=== PATIENT | male | born 1965 | race African-American/Black ===

== ENCOUNTER 2018-08-20 14:58 | Inpatient (IN) | payer OTHER ==
[~2018-08-20] VITALS: Ht 175.3 cm; Wt 78.4 kg
[2018-08-20 15:12] LABS: BASOPHILS % (AUTO) 0.8 % (0.0-5.0); EOSINOPHILS % (AUTO) 0.2 % (0.0-8.0); LYMPHOCYTES % (AUTO) 15.1 % (21.0-51.0); MEAN CORPUSCULAR HEMOGLOBIN 21.8 pg (27.0-33.0); MEAN CORPUSCULAR HGB CONC 31.2 g/dL (32.0-36.0); MEAN CORPUSCULAR VOLUME 69.8 fL (79-99); MONOCYTES % (AUTO) 7.4 % (3.0-13.0); NEUTROPHILS % (AUTO) 76.5 % (40.0-77.0); PLATELET COUNT (AUTO) 251 K/uL (130-400); RED BLOOD CELL COUNT(AUTO) 5.59 MIL/uL (4.50-6.20); RED CELL DISTRIBUTION WIDTH 14.2 % (11.0-15.5); WHITE BLOOD COUNT (AUTO) 12.1 K/uL (4.8-10.8)
[2018-08-20 15:24] LABS: INR 0.96 (0.85-1.15); PARTIAL THROMBOPLASTIN TIME 24.8 SEC (26.3-35.5); PROTHROMBIN TIME 10.1 SEC (9.6-11.6)
[2018-08-20 15:29] LABS: BILIRUBIN,TOTAL 0.5 mg/dL (0.2-1.0); CREATININE 1.9 mg/dL (0.5-1.5); POTASSIUM 4.1 mmol/L (3.5-5.1); TOTAL PROTEIN, SERUM 7.3 g/dL (6.0-8.3)
[2018-08-20] MEDS ORDERED: SODIUM CHLORIDE 0.9% 1000ML 1,000 ML IV ONE (15:37)
[2018-08-20] MEDS ORDERED: INSULIN HUMULIN R 100 UNIT/ML 3ML ONE (15:38)
[2018-08-20 16:21] LABS: APPEARANCE,URINE Clear (CLEAR); BILIRUBIN,URINE Negative (NEGATIVE); COLOR,URINE Yellow (YELLOW); GLUCOSE, URINE (UA) >=1000 mg/dL (NEGATIVE); KETONES,URINE 40 mg/dL (NEGATIVE); LEUKOCYTE ESTERASE ,URINE Negative (NEGATIVE); NITRATE,URINE Negative (NEGATIVE); OCCULT BLOOD,URINE Moderate (NEGATIVE); PROTEIN,URINE POS 2+ (NEGATIVE); UROBILINOGEN,URINE 0.2 mg/dL (0.2-1.0)
[2018-08-20 16:28] LABS: AMPHET/METH SCREEN,URINE NEGATIVE (NEGATIVE); BARBITURATE SCREEN, URINE NEGATIVE (NEGATIVE); BENZODIAZEPINES SCREEN,URINE NEGATIVE (NEGATIVE); CANNABINOID SCREEN,URINE NEGATIVE (NEGATIVE); COCAINE SCREEN,URINE POSITIVE (NEGATIVE); OPIATE SCREEN,URINE NEGATIVE (NEGATIVE); PHENCYCLIDINE SCREEN,URINE NEGATIVE (NEGATIVE)
[2018-08-20] MEDS ORDERED: ONDANSETRON HCL MDV 20ML 2 MG/ML VIAL IVP PRN (16:45)
[2018-08-20] MEDS ORDERED: MORPHINE SULFATE 4 MG/1ML SYG IV PRN (16:45)
[2018-08-20] MEDS ORDERED: GLUCAGON 1MG KIT 1 MG ML IM PRN (16:45)
[2018-08-20] MEDS ORDERED: PANTOPRAZOLE SODIUM 80 MG in SODIUM CHLORIDE 0.9% 100 ML IV SCH (16:45)
[2018-08-20] MEDS ORDERED: DEXTROSE 50%-WATER 50 ML DISP.SYRIN IV PRN (16:45)
[2018-08-20 16:49] LABS: BACTERIA,URINE None Seen /HPF (None Seen)
[2018-08-20 16:50] LABS: SQUAMOUS EPITHELIAL CELL,UR 0-2 /HPF (0-2); WBC,URINE 0-1 /HPF (0-1)
[2018-08-20] MEDS: SODIUM CHLORIDE 0.9% 1000ML 1,000 ML IV SCH (18:05)
[2018-08-20] MEDS: HYDRALAZINE HCL 20 MG/ML VIAL IV PRN ×2 (18:05→23:42)
[2018-08-20 18:09] VITALS: BP 188/96
[2018-08-20 18:33] VITALS: BP 156/75
[2018-08-20 19:30] VITALS: BP 149/83
--- NOTE | 2018-08-20 19:30 | NUR ---
bedside report received from DIRK Galeas. pt presents AAOx3. pt denies pain at this time. protonix and NS running. pt reports last cocaine use 08/17/18. pt reports last hospitalization 03/2018 and EGD done by Dr. Gonzales. Pt reports being diagnosed with ulcers and prescribed medication fill x 1 month. pt reports not following up with Dr. Gonzales and not refilling medications d/t insufficient funds. pt reports running out of lisinopril " a couple of months ago" and reports "rarely" checking blood glucoses. A1C at 13.4.
[2018-08-20] MEDS: INSULIN HUMULIN R 100 UNIT/ML 3ML SQ SCH (21:31)
[2018-08-20 21:52] LABS: TROPONIN I 0.09 ng/mL (0.00-0.06)
[2018-08-20 23:19] VITALS: BP 169/82
[2018-08-21 01:52] LABS: TROPONIN I 0.15 ng/mL (0.00-0.06)
[2018-08-21] MEDS: SODIUM CHLORIDE 0.9% 1000ML 1,000 ML IV SCH ×2 (02:35→12:35)
[2018-08-21 03:26] VITALS: BP 139/67
[2018-08-21 04:43] LABS: HEMATOCRIT 33.8 % (42-54); MEAN CORPUSCULAR HEMOGLOBIN 21.7 pg (27.0-33.0); MEAN CORPUSCULAR HGB CONC 32.1 g/dL (32.0-36.0); MEAN CORPUSCULAR VOLUME 67.5 fL (79-99); PLATELET COUNT (AUTO) 212 K/uL (130-400); RED BLOOD CELL COUNT(AUTO) 5.01 MIL/uL (4.50-6.20); RED CELL DISTRIBUTION WIDTH 14.2 % (11.0-15.5); WHITE BLOOD COUNT (AUTO) 10.1 K/uL (4.8-10.8)
--- NOTE | 2018-08-21 05:09 | NUR ---
Mega Reese NP notified of increased troponin from 0.09 to 0.15. SECOND TIME WORKER ordered EKG. Reported pts last cocaine use on . will report results to SECOND TIME WORKER.
[2018-08-21 05:10] LABS: ALBUMIN 2.4 g/dL (3.5-5.0); BILIRUBIN,TOTAL 0.6 mg/dL (0.2-1.0); CREATININE 1.5 mg/dL (0.5-1.5); POTASSIUM 3.2 mmol/L (3.5-5.1); TOTAL PROTEIN, SERUM 5.8 g/dL (6.0-8.3)
[2018-08-21] MEDS: INSULIN HUMULIN R 100 UNIT/ML 3ML SQ SCH ×2 (06:25→11:48)
[2018-08-21 07:52] VITALS: BP 147/81
[2018-08-21 10:22] LABS: TROPONIN I 0.1 ng/mL (0.00-0.06)
[2018-08-21 11:41] VITALS: BP 163/77
--- NOTE | 2018-08-21 14:29 | NUR ---
DC PLAN VISITED WITH PATIENT. IN BATHROOM WILL LOOP BACK. PER FACE SHEET LIVES ALONE. Addendum: 08/21/18 at 1430 by GWEN ANDERSON RN CM Amended: Links added.
[2018-08-21 16:35] VITALS: BP 144/81
[2018-08-21] MEDS ORDERED: PANT40TA PO (16:38)
--- NOTE | 2018-08-21 17:20 | NUR ---
Patient discharged at 1720. Both his IV's were dc'd and tele pack was removed. Patient was given education on signs and symptoms of bleeding and was informed that he has an appointment with Dr. Gonzales tomorrow at 1030am. Patient's had no questions and was taken via private vehicle by significant other.
== END 2018-08-21 17:40 | disposition home or self-care (01) | DRG 392 ==
LOC: EDH 14:58 → OBSVTOIN 14:59 → 2AH 14:59
PROVIDERS: ADMIT Hospitalist; ATTEND Hospitalist
DX: K52.9 Noninfective gastroenteritis and colitis, unspecified (principal); I24.8 Other forms of acute ischemic heart disease; K57.90 Diverticulosis of intestine, part unspecified, without perforation or abscess without bleeding; D53.9 Nutritional anemia, unspecified; E11.9 Type 2 diabetes mellitus without complications; F10.20 Alcohol dependence, uncomplicated; F14.90 Cocaine use, unspecified, uncomplicated; F17.210 Nicotine dependence, cigarettes, uncomplicated; I10 Essential (primary) hypertension; N28.1 Cyst of kidney, acquired; Z79.899 Other long term (current) drug therapy; Z87.11 Personal history of peptic ulcer disease; Z91.19 Patient's noncompliance with other medical treatment and regimen; Z83.3 Family history of diabetes mellitus
CPT/HCPCS: 36415; 74176; 80053; 80305; 81001; 82150; 82270; 82550; 82948; 83690; 83874; 84484; 85025; 85027; 85610; 85730; 86677; 87804; 93005; C9113; G0378; J0360; J1815; J7030

== ENCOUNTER 2019-03-11 20:47 | Inpatient (IN) | payer SELFPAY ==
[~2019-03-11] VITALS: Ht 175.3 cm; Wt 79.4 kg
[~2019-03-11 20:47] MED LIST: PANT40TA PO
[2019-03-11] MEDS ORDERED: SODIUM CHLORIDE 0.9% 1000ML 1,000 ML IV ONE ×2 (21:14→23:34)
[2019-03-11 21:17] LABS: APPEARANCE,URINE Clear (CLEAR); BILIRUBIN,URINE Negative (NEGATIVE); COLOR,URINE Yellow (YELLOW); GLUCOSE, URINE (UA) >=1000 mg/dL (NEGATIVE); KETONES,URINE 40 mg/dL (NEGATIVE); LEUKOCYTE ESTERASE ,URINE Negative (NEGATIVE); NITRATE,URINE Negative (NEGATIVE); OCCULT BLOOD,URINE Trace (NEGATIVE); PROTEIN,URINE 300 mg/dL (NEGATIVE); UROBILINOGEN,URINE 0.2 mg/dL (0.2-1.0)
[2019-03-11] MEDS ORDERED: CLONIDINE HCL 0.1 MG TABLET ONE (21:30)
[2019-03-11] MEDS ORDERED: ONDANSETRON HCL 4 MG/2 ML VIAL ONE (21:31)
[2019-03-11 21:33] LABS: BASOPHILS % (AUTO) 0.4 % (0.0-5.0); EOSINOPHILS % (AUTO) 0.1 % (0.0-8.0); HEMATOCRIT 41.9 % (42-54); LYMPHOCYTES % (AUTO) 12.9 % (21.0-51.0); MEAN CORPUSCULAR HEMOGLOBIN 21.6 pg (27.0-33.0); MEAN CORPUSCULAR VOLUME 69.9 fL (79-99); NEUTROPHILS % (AUTO) 78.6 % (40.0-77.0); PLATELET COUNT (AUTO) 258 K/uL (130-400); RED CELL DISTRIBUTION WIDTH 15.2 % (11.0-15.5)
[2019-03-11 21:48] LABS: INR 0.95 (0.85-1.15); PARTIAL THROMBOPLASTIN TIME 24.5 SEC (26.3-35.5)
[2019-03-11 21:54] LABS: ALBUMIN 3.3 g/dL (3.5-5.0); BILIRUBIN,DIRECT 0.1 mg/dL (0.0-0.3); BILIRUBIN,TOTAL 0.8 mg/dL (0.2-1.0); CREATININE 2.5 mg/dL (0.5-1.5); POTASSIUM 4.7 mmol/L (3.5-5.1)
[2019-03-11 22:05] LABS: ABG BASE EXCESS -2.1 mmol/L (-2.0-3.0); ABG HCO3 22.9 mmol/L (21.0-28.0); ABG OXYGEN SATURATION 96.4 % (95.0-99.0); ABG PCO2 40 mmHg (35-48)
[2019-03-11] MEDS: SODIUM CHLORIDE 0.9% 1000ML 1,000 ML IV SCH (23:08)
[2019-03-11] MEDS ORDERED: HYDRALAZINE HCL 20 MG/ML VIAL IV PRN (23:15)
[2019-03-11] MEDS ORDERED: ACETAMINOPHEN 325 MG TAB PO PRN ×2 (23:15)
[2019-03-11] MEDS ORDERED: INSULIN HUMULIN R 100 UNIT/ML 3ML ONE (23:33)
[2019-03-11 23:36] LABS: AMPHET/METH SCREEN,URINE NEGATIVE (NEGATIVE); BARBITURATE SCREEN, URINE NEGATIVE (NEGATIVE); BENZODIAZEPINES SCREEN,URINE NEGATIVE (NEGATIVE); CANNABINOID SCREEN,URINE NEGATIVE (NEGATIVE); COCAINE SCREEN,URINE POSITIVE (NEGATIVE); OPIATE SCREEN,URINE NEGATIVE (NEGATIVE); PHENCYCLIDINE SCREEN,URINE NEGATIVE (NEGATIVE)
[2019-03-12] VITALS (7 sets, daily range): BP systolic 128–178; BP diastolic 71–86
--- NOTE | 2019-03-12 00:35 | NUR ---
REFUSED TO SIGN ADMISSION PAPERS PATIENT DOES NOT WANT TO SIGN PAPERS RIGHT NOW, HE REPORTS HE WANTS TO SLEEP. WILL ENDORSE TO ONCOMING NURSE THE PAPERS WERE NOT SIGNED.
--- NOTE | 2019-03-12 01:32 | NUR ---
PAGED ROLLER SKATE ASSEMBLER PHYSICIAN PATIENT REPORTS FEELING "EXTREMELY NAUSEOUS". NO PRN MEDS FOR NAUSEA ORDERED AT THIS TIME.
[2019-03-12 01:45] LABS: CREATINE KINASE, TOTAL 74 U/L (21-232); MYOGLOBIN 78 ng/mL (10-92); TROPONIN I < 0.04 ng/mL (0.00-0.06)
[2019-03-12] MEDS ORDERED: PROMETHAZINE HCL 25 MG/ML 1ML AMPULE IM PRN (03:00)
[2019-03-12] MEDS: LORAZEPAM 1 MG TABLET PO SCH ×3 (05:27→21:22)
[2019-03-12] MEDS: NITROGLYCERIN 1GM/1 INCH PACKET TD SCH ×3 (05:28→21:23)
[2019-03-12 05:56] LABS: TROPONIN I 0.06 ng/mL (0.00-0.06)
[2019-03-12] MEDS ORDERED: INSULIN HUMULIN R 100 UNIT/ML 3ML ONE (06:03)
--- NOTE | 2019-03-12 06:14 | NUR ---
ELEVATED BLOOD GLUCOSE BLOOD SUGAR 460. ADMINISTERED 16 UNITS OF INSULIN -SEE OCT. PAGED ELECTRONIC DATA INTERCHANGE SPECIALIST PHYSICIAN. REINFORCED SAFETY PRECAUTIONS. BED LOCKED IN LOWEST POSITION, CALL LIGHT WITHIN REACH.
[2019-03-12] MEDS: SODIUM CHLORIDE 0.9% 1000ML 1,000 ML IV SCH ×3 (07:08→22:50)
[2019-03-12] MEDS: INSULIN HUMULIN R 100 UNIT/ML 3ML SQ SCH ×4 (07:30→20:20)
[2019-03-12 08:36] LABS: HEMOGLOBIN A1C 13.4 % (4.0-6.0)
[2019-03-12] MEDS: AMLODIPINE BESYLATE 5 MG TAB PO SCH (08:57)
[2019-03-12] MEDS: FAMOTIDINE/PF 20 MG/2 ML VIAL IV SCH (08:58)
[2019-03-12] MEDS: ENOXAPARIN SODIUM 30 MG/0.3 ML SQ SCH ×2 (08:58→21:22)
[2019-03-12 09:30] LABS: TROPONIN I 0.04 ng/mL (0.00-0.06)
[2019-03-12 09:38] LABS: BASOPHILS % (AUTO) 0.4 % (0.0-5.0); EOSINOPHILS % (AUTO) 0.1 % (0.0-8.0); HEMATOCRIT 35.9 % (42-54); LYMPHOCYTES % (AUTO) 9.8 % (21.0-51.0); MEAN CORPUSCULAR HEMOGLOBIN 22.6 pg (27.0-33.0); MEAN CORPUSCULAR HGB CONC 32.2 g/dL (32.0-36.0); MEAN CORPUSCULAR VOLUME 70.1 fL (79-99); MONOCYTES % (AUTO) 6.1 % (3.0-13.0); NEUTROPHILS % (AUTO) 83.6 % (40.0-77.0); NUCLEATED RED BLOOD CELLS 0.1 % (0.0-0.19); PLATELET COUNT (AUTO) 378 K/uL (130-400); RED BLOOD CELL COUNT(AUTO) 5.11 MIL/uL (4.50-6.20); RED CELL DISTRIBUTION WIDTH 15.4 % (11.0-15.5); WHITE BLOOD COUNT (AUTO) 14.7 K/uL (4.8-10.8)
[2019-03-12 09:46] LABS: ALBUMIN 2.8 g/dL (3.5-5.0); BILIRUBIN,TOTAL 0.4 mg/dL (0.2-1.0); CREATININE 2.4 mg/dL (0.5-1.5); POTASSIUM 4.2 mmol/L (3.5-5.1)
--- NOTE | 2019-03-12 15:30 | NUR ---
INITIAL Met w pt alone, pt indp ADL's employed, works outside, no dme; Pt lives with sister and her family; not listed on face sheet; asked about 'Matilde' on face sheet liseted as spouse- states just a friend but wants her listed as his spouse; cocaine positive; denied habiual use, states once every two weeks, no excess. declined info re rehab. DCP is home, [facility] to follow Addendum: 03/12/19 at 1740 by JACQUELYN NUÑEZ RN CM Amended: Links added.
[2019-03-12] MEDS ORDERED: INSULIN GLARGINE 100 UNITS/ML 10 ML VIAL SQ SCH (21:00)
[2019-03-13 04:36] LABS: HEMATOCRIT 33.7 % (42-54); MEAN CORPUSCULAR HEMOGLOBIN 22.1 pg (27.0-33.0); MEAN CORPUSCULAR HGB CONC 31.9 g/dL (32.0-36.0); MEAN CORPUSCULAR VOLUME 69.3 fL (79-99); PLATELET COUNT (AUTO) 193 K/uL (130-400); RED BLOOD CELL COUNT(AUTO) 4.86 MIL/uL (4.50-6.20); RED CELL DISTRIBUTION WIDTH 15.1 % (11.0-15.5); WHITE BLOOD COUNT (AUTO) 9.3 K/uL (4.8-10.8)
[2019-03-13 04:45] VITALS: BP 134/63
[2019-03-13 04:53] LABS: LYMPHOCYTES % (MANUAL) 30 % (22-44); MAN.DIFF COMMENT-IMPRESSION MANUAL DIFFERENTIAL; MONOCYTES % (MANUAL) 3 % (2-9); PLATELET MORPHOLOGY COMMENT ADEQUATE; SEGMENTED NEUTROPHILS % 67 % (40-70)
[2019-03-13 04:56] LABS: CREATININE 1.7 mg/dL (0.5-1.5); MAGNESIUM 2.3 mg/dL (1.80-2.40); PHOSPHORUS 2.4 mg/dL (2.5-4.9); POTASSIUM 3.4 mmol/L (3.5-5.1); URIC ACID 8.3 mg/dL (2.6-7.2)
[2019-03-13] MEDS: LORAZEPAM 1 MG TABLET PO SCH ×3 (06:09→20:26)
[2019-03-13] MEDS: NITROGLYCERIN 1GM/1 INCH PACKET TD SCH ×3 (06:09→20:26)
[2019-03-13] MEDS: INSULIN HUMULIN R 100 UNIT/ML 3ML SQ SCH ×4 (06:10→20:24)
[2019-03-13 07:56] VITALS: BP 171/87
[2019-03-13] MEDS: SODIUM CHLORIDE 0.9% 1000ML 1,000 ML IV SCH (08:31)
[2019-03-13] MEDS: FAMOTIDINE/PF 20 MG/2 ML VIAL IV SCH (08:32)
[2019-03-13] MEDS: FOLIC ACID/VITAMIN B COMP W-C 1 MG CAP/TAB PO SCH (08:32)
[2019-03-13] MEDS: AMLODIPINE BESYLATE 5 MG TAB PO SCH (08:32)
[2019-03-13] MEDS: ENOXAPARIN SODIUM 30 MG/0.3 ML SQ SCH ×2 (08:33→19:50)
[2019-03-13 10:35] VITALS: BP 151/80
[2019-03-13 15:37] VITALS: BP 164/82
[2019-03-13] MEDS: HYDROCHLOROTHIAZIDE 25 MG TABLET PO SCH (18:25)
[2019-03-13] MEDS ORDERED: POTASSIUM CHLORIDE 20 MEQ ERTAB PO SCH (19:03)
[2019-03-13 21:04] VITALS: BP 134/61
[2019-03-13] MEDS ORDERED: NEUTRA-PHOS PACKET 1 EACH PO SCH (21:15)
[2019-03-13] MEDS ORDERED: HYDR25TA PO (22:07)
[2019-03-13] MEDS ORDERED: ALLO100T PO (22:07)
[2019-03-13] MEDS ORDERED: GLIP5TAB11 PO (22:07)
[2019-03-13] MEDS ORDERED: METF-445 PO (22:07)
[2019-03-13] MEDS ORDERED: AMLO10TA7 PO (22:07)
[2019-03-13 23:30] VITALS: BP 122/76
[2019-03-14 04:58] VITALS: BP 121/71
[2019-03-14 05:20] LABS: BASOPHILS % (AUTO) 0.9 % (0.0-5.0); EOSINOPHILS % (AUTO) 2.1 % (0.0-8.0); HEMATOCRIT 33.4 % (42-54); LYMPHOCYTES % (AUTO) 35.6 % (21.0-51.0); MEAN CORPUSCULAR HGB CONC 31.8 g/dL (32.0-36.0); MEAN CORPUSCULAR VOLUME 69.3 fL (79-99); MONOCYTES % (AUTO) 8.6 % (3.0-13.0); NEUTROPHILS % (AUTO) 52.8 % (40.0-77.0); PLATELET COUNT (AUTO) 182 K/uL (130-400); RED BLOOD CELL COUNT(AUTO) 4.82 MIL/uL (4.50-6.20); RED CELL DISTRIBUTION WIDTH 14.7 % (11.0-15.5); WHITE BLOOD COUNT (AUTO) 6.8 K/uL (4.8-10.8)
[2019-03-14] MEDS: INSULIN HUMULIN R 100 UNIT/ML 3ML SQ SCH (05:32)
[2019-03-14 05:39] LABS: CREATININE 1.4 mg/dL (0.5-1.5); PHOSPHORUS 3.9 mg/dL (2.5-4.9); POTASSIUM 3.5 mmol/L (3.5-5.1)
[2019-03-14] MEDS: LORAZEPAM 1 MG TABLET PO SCH (06:03)
[2019-03-14] MEDS: NITROGLYCERIN 1GM/1 INCH PACKET TD SCH (06:05)
[2019-03-14] MEDS ORDERED: GLIPIZIDE 5 MG TABLET PO SCH (07:30)
--- NOTE | 2019-03-14 07:35 | NUR ---
Diet Education RD provided Diabetes and Nutrition Diet Education. RD reviewed reference materials and handouts with Pt. Pt with multiple questions. RD answered all questions. Pt verbalized understanding. RD encouraged Pt to notify as additional questions or concerns arise. RD to follow up. Noted elevated BG levels and altered renal labs. RD to continue to monitor. Addendum: 03/14/19 at 0738 by ADDISON MUÑOZ RD RD Amended: Links added.
[2019-03-14] MEDS ORDERED: METFORMIN HCL 500 MG TABLET PO SCH (08:00)
[2019-03-14] MEDS ORDERED: AMLODIPINE BESYLATE 2.5 MG TAB PO SCH (09:00)
[2019-03-14] MEDS ORDERED: ALLOPURINOL 100 MG TABLET PO SCH (09:00)
--- NOTE | 2019-03-14 09:37 | NUR ---
received report from loren escobedo .patient awake and alert. denies any pain or discomfort . will cont to monitor
[2019-03-14] MEDS: HYDROCHLOROTHIAZIDE 25 MG TABLET PO SCH (09:53)
[2019-03-14] MEDS: FAMOTIDINE/PF 20 MG/2 ML VIAL IV SCH (09:58)
[2019-03-14] MEDS: AMLODIPINE BESYLATE 5 MG TAB PO SCH (09:58)
[2019-03-14] MEDS: FOLIC ACID/VITAMIN B COMP W-C 1 MG CAP/TAB PO SCH (09:58)
[2019-03-14] MEDS: ENOXAPARIN SODIUM 30 MG/0.3 ML SQ SCH (09:59)
== END 2019-03-14 11:30 | disposition home or self-care (01) | DRG 641 ==
LOC: EDH 20:47 → EDHIP 20:48 → 3CH 03-12 00:50
PROVIDERS: ADMIT Hospitalist; ATTEND Hospitalist
DX: E86.0 Dehydration (principal); N17.9 Acute kidney failure, unspecified; E87.6 Hypokalemia; I16.0 Hypertensive urgency; E11.21 Type 2 diabetes mellitus with diabetic nephropathy; E11.22 Type 2 diabetes mellitus with diabetic chronic kidney disease; E78.5 Hyperlipidemia, unspecified; E86.1 Hypovolemia; F12.90 Cannabis use, unspecified, uncomplicated; F14.10 Cocaine abuse, uncomplicated; E79.0 Hyperuricemia without signs of inflammatory arthritis and tophaceous disease; I12.9 Hypertensive chronic kidney disease with stage 1 through stage 4 chronic kidney disease, or unspecified chronic kidney disease; N18.9 Chronic kidney disease, unspecified; T67.5XXA Heat exhaustion, unspecified, initial encounter; Y93.89 Activity, other specified; Y92.89 Other specified places as the place of occurrence of the external cause; Y99.8 Other external cause status; Z79.84 Long term (current) use of oral hypoglycemic drugs; Z79.899 Other long term (current) drug therapy; Z91.19 Patient's noncompliance with other medical treatment and regimen; Z83.3 Family history of diabetes mellitus
CPT/HCPCS: 36415; 36600; 71046; 76770; 80048; 80053; 80076; 80305; 81003; 82550; 82803; 82947; 82948; 83036; 83690; 83735; 83874; 84100; 84484; 84550; 85025; 85610; 85730; 93005; G0378; J0360; J1650; J1815; J2405; J2550; J3490; J7030

== ENCOUNTER 2019-12-06 03:42 | Inpatient (IN) | payer BC, OTHER ==
[2019-12-05 12:45] VITALS: BP 158/71
[2019-12-06] VITALS (9 sets, daily range): BP systolic 151–163; BP diastolic 69–78
[~2019-12-06 03:42] MED LIST changes: +ALLO100T PO; +AMLO-258 PO; +GLIP5TAB11 PO; +HYDR25TA PO; +METF-445 PO; -PANT40TA PO
[2019-12-06] MEDS ORDERED: METOCLOPRAMIDE 10 MG/2 ML VIAL ONE (03:59)
[2019-12-06] MEDS ORDERED: ONDANSETRON HCL 4 MG/2 ML VIAL ONE (03:59)
[2019-12-06] MEDS ORDERED: FAMOTIDINE/PF 20 MG/2 ML VIAL IV ONE (04:00)
[2019-12-06] MEDS ORDERED: NICARDIPINE HCL 25 MG/10 ML ML IV ONE ×2 (04:17→04:20)
[2019-12-06 04:29] LABS: BASOPHILS % (AUTO) 0.4 % (0.0-5.0); EOSINOPHILS % (AUTO) 0.1 % (0.0-8.0); HEMATOCRIT 41.5 % (42-54); LYMPHOCYTES % (AUTO) 14.3 % (21.0-51.0); MEAN CORPUSCULAR HEMOGLOBIN 21.1 pg (27.0-33.0); MEAN CORPUSCULAR HGB CONC 31.6 g/dL (32.0-36.0); MEAN CORPUSCULAR VOLUME 66.7 fL (79-99); MONOCYTES % (AUTO) 4.9 % (3.0-13.0); NEUTROPHILS % (AUTO) 79.9 % (40.0-77.0); PLATELET COUNT (AUTO) 317 K/uL (130-400); RED BLOOD CELL COUNT(AUTO) 6.22 MIL/uL (4.50-6.20); RED CELL DISTRIBUTION WIDTH 15.9 % (11.0-15.5); WHITE BLOOD COUNT (AUTO) 14.5 K/uL (4.8-10.8)
[2019-12-06 04:32] LABS: CARBON DIOXIDE 19 mmol/L (21-32); CHLORIDE 96 mmol/L (101-111); CREATININE 2.5 mg/dL (0.5-1.5); GLOMERULAR FILTR. RATE CALC 35 mL/min (>60); GLUCOSE,RANDOM 353 mg/dL (70-105); POTASSIUM 3.7 mmol/L (3.5-5.1); SODIUM SERUM 135 mmol/L (136-145); UREA NITROGEN, BLOOD 26 mg/dL (7-18)
[2019-12-06 04:33] LABS: INR 0.95 (0.85-1.15); PROTHROMBIN TIME 10.3 SEC (9.6-11.6)
[2019-12-06 04:39] LABS: OCCULT BLOOD,GASTRIC FLUID POSITIVE (NEGATIVE)
[2019-12-06 04:40] LABS: ALANINE AMINOTRANSFERASE 21 U/L (12-78); ALBUMIN 3.2 g/dL (3.5-5.0); ASPARTATE AMINOTRANSFERASE 17 U/L (10-37); BILIRUBIN,TOTAL 0.7 mg/dL (0.2-1.0); LIPASE 107 U/L (114-286); TOTAL PROTEIN, SERUM 7.4 g/dL (6.0-8.3)
[2019-12-06] MEDS ORDERED: DiphenhydrAMINE HCL 50 MG/ML VIAL ONE (04:43)
[2019-12-06 04:46] LABS: ALCOHOL, BLOOD < 3 mg/dL (0-10)
[2019-12-06 05:18] LABS: APPEARANCE,URINE Clear (CLEAR); BILIRUBIN,URINE Negative (NEGATIVE); COLOR,URINE Yellow (YELLOW); GLUCOSE, URINE (UA) >=1000 mg/dL (NEGATIVE); KETONES,URINE 40 mg/dL (NEGATIVE); LEUKOCYTE ESTERASE ,URINE Negative (NEGATIVE); NITRATE,URINE Negative (NEGATIVE); OCCULT BLOOD,URINE Moderate (NEGATIVE); PH,URINE 5.5 (5.0-8.0); PROTEIN,URINE >=1000 mg/dL (NEGATIVE)
[2019-12-06 05:26] LABS: AMPHET/METH SCREEN,URINE NEGATIVE (NEGATIVE); BARBITURATE SCREEN, URINE NEGATIVE (NEGATIVE); BENZODIAZEPINES SCREEN,URINE NEGATIVE (NEGATIVE); CANNABINOID SCREEN,URINE POSITIVE (NEGATIVE); COCAINE SCREEN,URINE POSITIVE (NEGATIVE); OPIATE SCREEN,URINE NEGATIVE (NEGATIVE); PHENCYCLIDINE SCREEN,URINE NEGATIVE (NEGATIVE)
[2019-12-06 05:36] LABS: BACTERIA,URINE None Seen /HPF (None Seen); RBC,URINE 0-1 /HPF (0-1); SQUAMOUS EPITHELIAL CELL,UR Rare /HPF (0-2); WBC,URINE 0-1 /HPF (0-1); YEAST,URINE BUDDING None Seen /HPF (None Seen)
[2019-12-06] MEDS ORDERED: SODIUM CHLORIDE 0.9% 1000ML 1,000 ML IV SCH (05:59)
[2019-12-06] MEDS ORDERED: ONDANSETRON HCL 4 MG/2 ML VIAL IV PRN (06:00)
[2019-12-06] MEDS ORDERED: MORPHINE SULFATE 2 MG/ML 1ML SYG IV PRN (06:00)
[2019-12-06] MEDS ORDERED: LACTULOSE 20 GM/30 ML UDCUP PO PRN (06:00)
[2019-12-06] MEDS ORDERED: ACETAMINOPHEN 325 MG TAB PO PRN ×2 (06:00)
[2019-12-06] MEDS ORDERED: HYDRALAZINE HCL 20 MG/ML VIAL IV PRN (06:00)
[2019-12-06] MEDS ORDERED: ZOSYN 3.375GM+NS 50ML 50 ML IV SCH (06:30)
[2019-12-06 06:55] LABS: CHOLESTEROL 254 mg/dL (<200); HDL CHOLESTEROL 81 mg/dL (29-71); LDL DIRECT 148 mg/dL (0-99); TRIGLYCERIDES 126 mg/dL (30-200)
[2019-12-06 06:59] LABS: HEMOGLOBIN A1C 9.2 % (4.0-6.0)
[2019-12-06] MEDS ORDERED: ZOSYN 3.375GM+NS 50ML 50 ML IV ONE (07:26)
[2019-12-06] MEDS ORDERED: METOPROLOL TARTRATE 25 MG TAB PO SCH (09:00)
[2019-12-06] MEDS ORDERED: PANTOPRAZOLE SODIUM 80 MG in SODIUM CHLORIDE 0.9% 100 ML IV SCH (09:00)
[2019-12-06] MEDS ORDERED: METOPROLOL TARTRATE 25 MG TAB ONE (10:25)
[2019-12-06 10:53] LABS: HEMATOCRIT 35.5 % (42-54)
[2019-12-06] MEDS ORDERED: SODIUM CHLORIDE 0.9% 100 ML IV ONE (11:36)
[2019-12-06] MEDS ORDERED: PROPOFOL 10 MG/ML 20ML VIAL IV ONE (11:58)
[2019-12-06] MEDS ORDERED: GLYCOPYRROLATE 1 MG/5 ML SYRINGE ONE ×2 (11:59→12:00)
[2019-12-06] MEDS ORDERED: NEOSTIGMINE 5MG/5ML SYR IV ONE (11:59)
[2019-12-06] MEDS ORDERED: ROCURONIUM 10MG/1ML SYR 10 MG/ML ML ONE (12:01)
--- NOTE | 2019-12-06 12:55 | NUR ---
chart reviewed, acbrenna uploaded. Addendum: 12/06/19 at 1255 by JACQUELYN NUÑEZ RN CM Amended: Links added.
[2019-12-06] MEDS ORDERED: MIDAZOLAM HCL 1 MG/ML 2ML VIAL ONE (13:38)
[2019-12-06] MEDS ORDERED: FENTANYL CITRATE PF 50 MCG/1 ML 2ML VIAL ONE (13:39)
[2019-12-06] MEDS ORDERED: PANT40TA PO (15:15)
[2019-12-06] MEDS ORDERED: ATORVASTATIN CALCIUM 20 MG TABLET PO SCH (21:00)
[2020-05-14] MEDS ORDERED: LORA0.5T83 PO (01:24)
[2020-05-14] MEDS ORDERED: CHLO25TA23 PO (01:24)
[2020-05-14] MEDS ORDERED: ATOR40TA69 PO (01:24)
[2020-05-14] MEDS ORDERED: HYDR-4153 PO (01:24)
[2020-05-14] MEDS ORDERED: ISOS60TA4 PO (01:24)
[2020-05-17] MEDS ORDERED: METF-446 PO (17:19)
[2020-05-17] MEDS ORDERED: GLIP10TA19 PO (17:20)
[2020-05-17] MEDS ORDERED: INSU100I35 SQ ×2 (17:22→17:24)
== END 2019-12-06 17:26 | disposition home or self-care (01) | DRG 682 ==
LOC: EDH 03:42 → EDHIP 05:59 → OBSVTOIN 05:59
PROVIDERS: ADMIT Internal Medicine; ATTEND Internal Medicine
PROC: 0DB58ZX Excision of Esophagus, Via Natural or Artificial Opening Endoscopic, Diagnostic (ICD-10-PCS; principal; 2019-12-06)
PROC: 0DB68ZX Excision of Stomach, Via Natural or Artificial Opening Endoscopic, Diagnostic (ICD-10-PCS; 2019-12-06)
DX: N17.9 Acute kidney failure, unspecified (principal); K29.51 Unspecified chronic gastritis with bleeding; I24.8 Other forms of acute ischemic heart disease; E87.2 Acidosis; I16.0 Hypertensive urgency; E11.22 Type 2 diabetes mellitus with diabetic chronic kidney disease; F12.90 Cannabis use, unspecified, uncomplicated; F14.90 Cocaine use, unspecified, uncomplicated; F17.200 Nicotine dependence, unspecified, uncomplicated; I12.9 Hypertensive chronic kidney disease with stage 1 through stage 4 chronic kidney disease, or unspecified chronic kidney disease; N18.9 Chronic kidney disease, unspecified; K21.0 Gastro-esophageal reflux disease with esophagitis; K29.50 Unspecified chronic gastritis without bleeding; Z83.3 Family history of diabetes mellitus; Z82.49 Family history of ischemic heart disease and other diseases of the circulatory system
CPT/HCPCS: 36415; 43239; 71045; 74176; 80053; 80061; 80305; 81001; 82271; 82948; 83036; 83605; 83690; 84484; 85014; 85018; 85025; 85610; 85730; 86850; 86900; 86901; 87040; 93005; 99291; G0378; G0480; J1200; J2250; J2405; J2543; J2704; J2710; J2765; J3010; J3490

== ENCOUNTER 2020-11-23 03:05 | Inpatient (IN) | payer OTHER ==
[~2020-11-23] VITALS: Ht 177.8 cm; Wt 97.1 kg
[~2020-11-23 03:05] MED LIST changes: -ALLO100T PO; +ATOR40TA69 PO; +CHLO25TA23 PO; +GLIP10TA19 PO; -GLIP5TAB11 PO; +HYDR-4153 PO; -HYDR25TA PO; +INSU100I35 SQ; +ISOS60TA77 PO; +LORA0.5T83 PO; -METF-445 PO; +METF-446 PO; +PANT40TA PO
[2020-11-23 03:20] LABS: BASOPHILS % (AUTO) 0.6 % (0.0-5.0); EOSINOPHILS % (AUTO) 3.3 % (0.0-8.0); HEMATOCRIT 31.8 % (42-54); LYMPHOCYTES % (AUTO) 13.9 % (21.0-51.0); MEAN CORPUSCULAR HEMOGLOBIN 19.9 pg (27.0-33.0); MEAN CORPUSCULAR HGB CONC 32.1 g/dL (32.0-36.0); MEAN CORPUSCULAR VOLUME 62.1 fL (79-99); MONOCYTES % (AUTO) 11.6 % (3.0-13.0); NEUTROPHILS % (AUTO) 70.4 % (40.0-77.0); PLATELET COUNT (AUTO) 364 K/uL (130-400); RED BLOOD CELL COUNT(AUTO) 5.12 MIL/uL (4.50-6.20); RED CELL DISTRIBUTION WIDTH 17.2 % (11.0-15.5); WHITE BLOOD COUNT (AUTO) 8.9 K/uL (4.8-10.8)
[2020-11-23] MEDS ORDERED: FUROSEMIDE 10 MG/ML 4ML VIAL ONE ×2 (03:31→07:43)
[2020-11-23 03:35] LABS: ALBUMIN 2.2 g/dL (3.5-5.0); BILIRUBIN,TOTAL 0.6 mg/dL (0.2-1.0); CREATININE 2.1 mg/dL (0.5-1.5); POTASSIUM 4.6 mmol/L (3.5-5.1); TOTAL PROTEIN, SERUM 6.9 g/dL (6.0-8.3)
[2020-11-23 03:52] LABS: INR 1.05 (0.85-1.15); PROTHROMBIN TIME 11.4 SEC (9.6-11.6)
[2020-11-23 03:54] LABS: PARTIAL THROMBOPLASTIN TIME 26.4 SEC (26.3-35.5)
[2020-11-23 04:09] LABS: APPEARANCE,URINE Clear (CLEAR); BILIRUBIN,URINE Negative (NEGATIVE); COLOR,URINE Yellow (YELLOW); GLUCOSE, URINE (UA) 250 mg/dL (NEGATIVE); KETONES,URINE Negative (NEGATIVE); LEUKOCYTE ESTERASE ,URINE Negative (NEGATIVE); NITRATE,URINE Negative (NEGATIVE); OCCULT BLOOD,URINE Moderate (NEGATIVE); PROTEIN,URINE 300 mg/dL (NEGATIVE)
[2020-11-23 04:28] LABS: BACTERIA,URINE None Seen /HPF (None Seen); SQUAMOUS EPITHELIAL CELL,UR Few /HPF (0-2); WBC,URINE 0-1 /HPF (0-1)
[2020-11-23 04:41] LABS: AMPHET/METH SCREEN,URINE NEGATIVE (NEGATIVE); BARBITURATE SCREEN, URINE NEGATIVE (NEGATIVE); BENZODIAZEPINES SCREEN,URINE NEGATIVE (NEGATIVE); CANNABINOID SCREEN,URINE NEGATIVE (NEGATIVE); COCAINE SCREEN,URINE POSITIVE (NEGATIVE); OPIATE SCREEN,URINE NEGATIVE (NEGATIVE); PHENCYCLIDINE SCREEN,URINE NEGATIVE (NEGATIVE)
[2020-11-23] MEDS ORDERED: HYDROCODONE/ACETAMINOPHEN 5/325 MG TAB ONE (06:14)
[2020-11-23] MEDS ORDERED: ONDANSETRON HCL 4 MG/2 ML VIAL IVP PRN (09:00)
[2020-11-23] MEDS: ENOXAPARIN SODIUM 40 MG/0.4 ML SYRINGE SQ SCH (09:00)
[2020-11-23] MEDS ORDERED: FUROSEMIDE 10 MG/ML 2ML VIAL IV SCH (09:00)
[2020-11-23] MEDS ORDERED: ACETAMINOPHEN 325 MG TAB PO PRN (09:00)
[2020-11-23] MEDS ORDERED: ENOXAPARIN SODIUM 40 MG/0.4 ML SYRINGE SQ ONE (09:03)
[2020-11-23] MEDS ORDERED: INSULIN HUMULIN R 100 UNIT/ML 3ML ONE (09:09)
[2020-11-23] MEDS ORDERED: DEXTROSE 50%-WATER 50 ML DISP.SYRIN IV PRN (09:15)
[2020-11-23] MEDS ORDERED: GLUCAGON 1MG KIT 1 MG ML IM PRN (09:15)
[2020-11-23 10:20] VITALS: BP 155/93
[2020-11-23] MEDS ORDERED: SPIR25TA PO (10:26)
[2020-11-23] MEDS ORDERED: LISI20TA24 PO (10:26)
[2020-11-23] MEDS ORDERED: FURO40TA5 PO (10:26)
[2020-11-23] MEDS ORDERED: FOLI0.8T22 PO (10:26)
[2020-11-23] MEDS ORDERED: FERS325 PO (10:26)
[2020-11-23] MEDS: INSULIN HUMULIN R 100 UNIT/ML 3ML SQ SCH ×3 (11:45→20:18)
[2020-11-23] MEDS: AMLODIPINE BESYLATE 5 MG TAB PO SCH (12:00)
[2020-11-23 12:22] LABS: MAGNESIUM 2.1 mg/dL (1.80-2.40); THYROID STIMULATING HORMONE 2.33 uIU/mL (0.36-3.74); URIC ACID 9.2 mg/dL (2.6-7.2)
[2020-11-23] MEDS: CEFTRIAXONE SODIUM 1 GM IVP SCH (12:56)
[2020-11-23 13:27] LABS: PROTEIN,URINE RANDOM 383.1 mg/dL (0-11.9)
[2020-11-23 16:00] VITALS: BP 152/96
[2020-11-23 19:38] VITALS: BP 145/98
[2020-11-23] MEDS: FUROSEMIDE 10 MG/ML 4ML VIAL IV SCH (20:18)
[2020-11-23] MEDS ORDERED: SPIRONOLACTONE 25 MG TAB PO SCH (21:00)
[2020-11-23] MEDS ORDERED: FUROSEMIDE 40 MG TABLET PO SCH (21:00)
[2020-11-23 23:20] VITALS: BP 161/104
[2020-11-24 03:24] VITALS: BP 163/102
[2020-11-24 04:22] LABS: BASOPHILS % (AUTO) 0.7 % (0.0-5.0); EOSINOPHILS % (AUTO) 4.8 % (0.0-8.0); HEMATOCRIT 31.2 % (42-54); LYMPHOCYTES % (AUTO) 18.6 % (21.0-51.0); MEAN CORPUSCULAR HEMOGLOBIN 19.9 pg (27.0-33.0); MEAN CORPUSCULAR HGB CONC 31.7 g/dL (32.0-36.0); MEAN CORPUSCULAR VOLUME 62.7 fL (79-99); MONOCYTES % (AUTO) 10.8 % (3.0-13.0); NEUTROPHILS % (AUTO) 64.8 % (40.0-77.0); PLATELET COUNT (AUTO) 378 K/uL (130-400); RED BLOOD CELL COUNT(AUTO) 4.98 MIL/uL (4.50-6.20); RED CELL DISTRIBUTION WIDTH 17.2 % (11.0-15.5); WHITE BLOOD COUNT (AUTO) 6.9 K/uL (4.8-10.8)
[2020-11-24 04:38] LABS: ALBUMIN 1.9 g/dL (3.5-5.0); BILIRUBIN,TOTAL 0.4 mg/dL (0.2-1.0); POTASSIUM 4.6 mmol/L (3.5-5.1); TOTAL PROTEIN, SERUM 6.4 g/dL (6.0-8.3)
[2020-11-24 04:44] LABS: % IRON SATURATION 6.4 % (30-44)
[2020-11-24] MEDS: INSULIN HUMULIN R 100 UNIT/ML 3ML SQ SCH ×5 (05:45→20:30)
[2020-11-24 08:00] VITALS: BP 163/113
[2020-11-24] MEDS ORDERED: ACETAMINOPHEN-CODEINE 300/30MG TAB PO PRN ×2 (08:00)
[2020-11-24] MEDS ORDERED: AMLODIPINE BESYLATE 5 MG TAB PO SCH (09:00)
[2020-11-24] MEDS ORDERED: LISINOPRIL 20 MG TABLET PO SCH (09:00)
[2020-11-24] MEDS: AMLODIPINE BESYLATE 5 MG TAB PO SCH (09:11)
[2020-11-24] MEDS: Vitamin B Complex/Vit C/Folic Acid PO SCH (09:11)
[2020-11-24] MEDS: FERROUS SULFATE 325 MG TABLET.DR PO SCH (09:11)
[2020-11-24] MEDS: FUROSEMIDE 10 MG/ML 4ML VIAL IV SCH ×2 (09:11→20:13)
[2020-11-24] MEDS: ENOXAPARIN SODIUM 40 MG/0.4 ML SYRINGE SQ SCH (09:13)
[2020-11-24 12:00] VITALS: BP 166/100
[2020-11-24] MEDS: AZITHROMYCIN 500MG+NS 250ML 250 ML IV SCH (12:28)
[2020-11-24] MEDS: CEFTRIAXONE SODIUM 1 GM IVP SCH (12:28)
[2020-11-24] MEDS ORDERED: COMPOUND IV MISC 1 EACH IVSOLN MISC PRN (15:15)
[2020-11-24 17:10] VITALS: BP 153/102
[2020-11-24] MEDS: IRON SUCROSE COMPLEX 300 MG in SODIUM CHLORIDE 0.9% 50 ML IV SCH (17:42)
[2020-11-24] MEDS ORDERED: HYDRALAZINE HCL 20 MG/ML VIAL IV SCH (18:45)
[2020-11-24 20:49] VITALS: BP 147/85
[2020-11-24] MEDS ORDERED: LACTULOSE 20 GM/30 ML UDCUP PO ONE (22:30)
[2020-11-24] MEDS ORDERED: LACTULOSE 20 GM/30 ML UDCUP ONE (22:46)
[2020-11-24 23:54] VITALS: BP 141/68
[2020-11-25 04:00] VITALS: BP 147/68
[2020-11-25 04:36] LABS: HEMATOCRIT 29.5 % (42-54); MEAN CORPUSCULAR HEMOGLOBIN 19.5 pg (27.0-33.0); MEAN CORPUSCULAR HGB CONC 31.9 g/dL (32.0-36.0); MEAN CORPUSCULAR VOLUME 61.3 fL (79-99); RED BLOOD CELL COUNT(AUTO) 4.81 MIL/uL (4.50-6.20); RED CELL DISTRIBUTION WIDTH 16.9 % (11.0-15.5); WHITE BLOOD COUNT (AUTO) 6.8 K/uL (4.8-10.8)
[2020-11-25 04:44] LABS: CREATININE 1.9 mg/dL (0.5-1.5); POTASSIUM 4.3 mmol/L (3.5-5.1)
[2020-11-25] MEDS: INSULIN HUMULIN R 100 UNIT/ML 3ML SQ SCH ×4 (05:48→21:00)
[2020-11-25 07:53] VITALS: BP 142/93
[2020-11-25] MEDS ORDERED: IRON SUCROSE COMPLEX 300 MG in SODIUM CHLORIDE 0.9% 50 ML IV SCH (09:00)
[2020-11-25] MEDS: IRON SUCROSE COMPLEX 300 MG in SODIUM CHLORIDE 0.9% 50 ML IV SCH (09:00)
[2020-11-25] MEDS: FERROUS SULFATE 325 MG TABLET.DR PO SCH (09:09)
[2020-11-25] MEDS: Vitamin B Complex/Vit C/Folic Acid PO SCH (09:09)
[2020-11-25] MEDS: AMLODIPINE BESYLATE 5 MG TAB PO SCH (09:10)
[2020-11-25] MEDS: FUROSEMIDE 10 MG/ML 4ML VIAL IV SCH ×2 (09:11→18:56)
[2020-11-25] MEDS: ENOXAPARIN SODIUM 40 MG/0.4 ML SYRINGE SQ SCH (09:12)
[2020-11-25 11:29] VITALS: BP 145/93
[2020-11-25] MEDS: AZITHROMYCIN 500MG+NS 250ML 250 ML IV SCH (14:24)
[2020-11-25] MEDS: CEFTRIAXONE SODIUM 1 GM IVP SCH (14:24)
[2020-11-25 16:00] VITALS: BP 130/78
[2020-11-25 19:50] VITALS: BP 141/73
[2020-11-25 23:29] VITALS: BP 139/84
[2020-11-26 03:49] LABS: BASOPHILS % (AUTO) 0.7 % (0.0-5.0); EOSINOPHILS % (AUTO) 5.5 % (0.0-8.0); HEMATOCRIT 31.9 % (42-54); MEAN CORPUSCULAR HEMOGLOBIN 19.3 pg (27.0-33.0); MEAN CORPUSCULAR VOLUME 62.3 fL (79-99); MONOCYTES % (AUTO) 13.2 % (3.0-13.0); NEUTROPHILS % (AUTO) 60.3 % (40.0-77.0); PLATELET COUNT (AUTO) 392 K/uL (130-400); RED BLOOD CELL COUNT(AUTO) 5.12 MIL/uL (4.50-6.20); WHITE BLOOD COUNT (AUTO) 7.4 K/uL (4.8-10.8)
[2020-11-26 04:03] LABS: MAGNESIUM 2.1 mg/dL (1.80-2.40); POTASSIUM 4.6 mmol/L (3.5-5.1)
[2020-11-26 04:04] LABS: B-TYPE NATRIURETIC PEPTIDE 3280 pg/mL (0-100)
[2020-11-26 04:46] VITALS: BP 124/81
[2020-11-26] MEDS: INSULIN HUMULIN R 100 UNIT/ML 3ML SQ SCH ×4 (06:36→21:03)
[2020-11-26] MEDS: FUROSEMIDE 10 MG/ML 4ML VIAL IV SCH ×2 (06:39→17:01)
[2020-11-26 07:00] VITALS: BP 144/89
[2020-11-26] MEDS: Vitamin B Complex/Vit C/Folic Acid PO SCH (08:44)
[2020-11-26] MEDS: AMLODIPINE BESYLATE 5 MG TAB PO SCH (08:44)
[2020-11-26] MEDS: CEFTRIAXONE SODIUM 1 GM IVP SCH (08:44)
[2020-11-26] MEDS: FERROUS SULFATE 325 MG TABLET.DR PO SCH (08:44)
[2020-11-26] MEDS: ENOXAPARIN SODIUM 40 MG/0.4 ML SYRINGE SQ SCH (08:47)
[2020-11-26] MEDS: IRON SUCROSE COMPLEX 300 MG in SODIUM CHLORIDE 0.9% 50 ML IV SCH (08:47)
[2020-11-26] MEDS: AZITHROMYCIN 500MG+NS 250ML 250 ML IV SCH (09:12)
[2020-11-26 11:00] VITALS: BP 137/100
[2020-11-26 16:00] VITALS: BP 139/91
[2020-11-26 21:06] VITALS: BP 142/94
[2020-11-26 23:23] VITALS: BP 147/87
[2020-11-27 03:54] VITALS: BP 143/86
[2020-11-27 04:45] LABS: HEMATOCRIT 30.7 % (42-54); MEAN CORPUSCULAR HEMOGLOBIN 19.1 pg (27.0-33.0); MEAN CORPUSCULAR HGB CONC 30.6 g/dL (32.0-36.0); MEAN CORPUSCULAR VOLUME 62.4 fL (79-99); RED BLOOD CELL COUNT(AUTO) 4.92 MIL/uL (4.50-6.20); RED CELL DISTRIBUTION WIDTH 17.1 % (11.0-15.5)
[2020-11-27 05:09] LABS: CREATININE 2.1 mg/dL (0.5-1.5); POTASSIUM 4.5 mmol/L (3.5-5.1)
[2020-11-27] MEDS: FUROSEMIDE 10 MG/ML 4ML VIAL IV SCH (05:58)
[2020-11-27] MEDS: INSULIN HUMULIN R 100 UNIT/ML 3ML SQ SCH ×2 (05:59→11:04)
[2020-11-27 07:00] VITALS: BP 138/88
[2020-11-27] MEDS: FERROUS SULFATE 325 MG TABLET.DR PO SCH (08:56)
[2020-11-27] MEDS: AMLODIPINE BESYLATE 5 MG TAB PO SCH (08:56)
[2020-11-27] MEDS: CEFTRIAXONE SODIUM 1 GM IVP SCH (08:56)
[2020-11-27] MEDS: Vitamin B Complex/Vit C/Folic Acid PO SCH (08:56)
[2020-11-27] MEDS: ENOXAPARIN SODIUM 40 MG/0.4 ML SYRINGE SQ SCH (08:56)
[2020-11-27] MEDS: IRON SUCROSE COMPLEX 300 MG in SODIUM CHLORIDE 0.9% 50 ML IV SCH (08:56)
[2020-11-27] MEDS: AZITHROMYCIN 500MG+NS 250ML 250 ML IV SCH (09:02)
[2020-11-27 11:00] VITALS: BP 132/93
[2020-11-27] MEDS ORDERED: TORS100T16 PO (14:17)
[2020-11-27 15:00] VITALS: BP 135/85
== END 2020-11-27 16:25 | disposition home or self-care (01) | DRG 729 ==
LOC: EDH 03:05 → EDHIP 03:06 → 4BH 10:04 → 4DH 11-24 21:52
PROVIDERS: ADMIT Internal Medicine; ATTEND Internal Medicine
DX: N43.3 Hydrocele, unspecified (principal); J90 Pleural effusion, not elsewhere classified; N17.9 Acute kidney failure, unspecified; J98.11 Atelectasis; N04.9 Nephrotic syndrome with unspecified morphologic changes; N50.89 Other specified disorders of the male genital organs; E11.65 Type 2 diabetes mellitus with hyperglycemia; N18.9 Chronic kidney disease, unspecified; F41.9 Anxiety disorder, unspecified; F14.10 Cocaine abuse, uncomplicated; E87.70 Fluid overload, unspecified; E11.22 Type 2 diabetes mellitus with diabetic chronic kidney disease; I13.10 Hypertensive heart and chronic kidney disease without heart failure, with stage 1 through stage 4 chronic kidney disease, or unspecified chronic kidney disease; E88.09 Other disorders of plasma-protein metabolism, not elsewhere classified; K59.00 Constipation, unspecified; N48.89 Other specified disorders of penis; Z79.899 Other long term (current) drug therapy; Z91.19 Patient's noncompliance with other medical treatment and regimen; Z82.3 Family history of stroke; Z83.3 Family history of diabetes mellitus; Z82.49 Family history of ischemic heart disease and other diseases of the circulatory system
CPT/HCPCS: 36415; 71045; 74176; 76700; 76870; 80048; 80053; 80305; 81001; 82570; 82728; 82948; 83540; 83550; 83605; 83735; 83880; 84156; 84443; 84484; 84550; 85025; 85027; 85610; 85730; 93005; 93306; 93356; 93970; G0378; J0360; J0456; J0696; J1650; J1756; J1815; J1940; J7070

== ENCOUNTER 2021-01-11 00:22 | Inpatient (IN) | payer OTHER ==
[2021-01-11] VITALS (8 sets, daily range): BP systolic 136–157; BP diastolic 75–97
[~2021-01-11] VITALS: Ht 175.3 cm; Wt 95.6 kg
[~2021-01-11 00:22] MED LIST changes: -AMLO-258 PO; -ATOR40TA69 PO; -CHLO25TA23 PO; +FERS325 PO; +FOLI0.8T22 PO; -GLIP10TA19 PO; -HYDR-4153 PO; -INSU100I35 SQ; -ISOS60TA77 PO; +LISI20TA24 PO; -LORA0.5T83 PO; -METF-446 PO; -PANT40TA PO; +TORS100T16 PO
[2021-01-11 01:22] LABS: BASOPHILS % (AUTO) 0.7 % (0.0-5.0); EOSINOPHILS % (AUTO) 3.9 % (0.0-8.0); HEMATOCRIT 32.2 % (42-54); LYMPHOCYTES % (AUTO) 14.6 % (21.0-51.0); MEAN CORPUSCULAR HEMOGLOBIN 20.8 pg (27.0-33.0); MEAN CORPUSCULAR VOLUME 65.1 fL (79-99); MONOCYTES % (AUTO) 14.5 % (3.0-13.0); NEUTROPHILS % (AUTO) 65.8 % (40.0-77.0); PLATELET COUNT (AUTO) 278 K/uL (130-400); RED BLOOD CELL COUNT(AUTO) 4.95 MIL/uL (4.50-6.20); RED CELL DISTRIBUTION WIDTH 22.3 % (11.0-15.5); WHITE BLOOD COUNT (AUTO) 7.6 K/uL (4.8-10.8)
[2021-01-11 01:33] LABS: CREATININE 2.1 mg/dL (0.5-1.5); POTASSIUM 5.2 mmol/L (3.5-5.1)
[2021-01-11 01:37] LABS: BILIRUBIN,TOTAL 0.8 mg/dL (0.2-1.0); TOTAL PROTEIN, SERUM 6.2 g/dL (6.0-8.3)
[2021-01-11 01:47] LABS: B-TYPE NATRIURETIC PEPTIDE 2940 pg/mL (0-100)
[2021-01-11 01:54] LABS: INR 1.03 (0.85-1.15); PROTHROMBIN TIME 11.2 SEC (9.6-11.6)
[2021-01-11] MEDS ORDERED: FUROSEMIDE 40MG VIAL (10MG/ML) ONE (02:17)
[2021-01-11] MEDS: FUROSEMIDE IVP SCH ×2 (02:19→02:36)
[2021-01-11 03:26] LABS: APPEARANCE,URINE Clear (CLEAR); BILIRUBIN,URINE Negative (NEGATIVE); COLOR,URINE Yellow (YELLOW); GLUCOSE, URINE (UA) Negative (NEGATIVE); KETONES,URINE Negative (NEGATIVE); LEUKOCYTE ESTERASE ,URINE Negative (NEGATIVE); NITRATE,URINE Negative (NEGATIVE); OCCULT BLOOD,URINE Trace (NEGATIVE); PROTEIN,URINE 300 mg/dL (NEGATIVE)
[2021-01-11 03:34] LABS: AMPHET/METH SCREEN,URINE NEGATIVE (NEGATIVE); BARBITURATE SCREEN, URINE NEGATIVE (NEGATIVE); BENZODIAZEPINES SCREEN,URINE NEGATIVE (NEGATIVE); CANNABINOID SCREEN,URINE NEGATIVE (NEGATIVE); COCAINE SCREEN,URINE NEGATIVE (NEGATIVE); OPIATE SCREEN,URINE NEGATIVE (NEGATIVE); PHENCYCLIDINE SCREEN,URINE NEGATIVE (NEGATIVE)
[2021-01-11 03:39] LABS: BACTERIA,URINE Rare /HPF (None Seen); SQUAMOUS EPITHELIAL CELL,UR 0-2 /HPF (0-2); TRANSITIONAL EPI CELLS,URINE Rare /HPF (None Seen); WBC,URINE 0-1 /HPF (0-1)
[2021-01-11] MEDS ORDERED: ACETAMINOPHEN 325 MG TAB PO PRN ×2 (05:30)
[2021-01-11] MEDS ORDERED: FUROSEMIDE 20MG VIAL (10MG/ML) IV SCH (05:30)
[2021-01-11] MEDS ORDERED: ONDANSETRON HCL 4 MG/2 ML VIAL IV PRN (05:30)
[2021-01-11 07:43] LABS: HEMATOCRIT 32.3 % (42-54); MEAN CORPUSCULAR HEMOGLOBIN 20.3 pg (27.0-33.0); MEAN CORPUSCULAR HGB CONC 31.6 g/dL (32.0-36.0); MEAN CORPUSCULAR VOLUME 64.2 fL (79-99); PLATELET COUNT (AUTO) 260 K/uL (130-400); RED BLOOD CELL COUNT(AUTO) 5.03 MIL/uL (4.50-6.20); RED CELL DISTRIBUTION WIDTH 21.3 % (11.0-15.5); WHITE BLOOD COUNT (AUTO) 7.1 K/uL (4.8-10.8)
[2021-01-11 08:05] LABS: ALBUMIN 1.9 g/dL (3.5-5.0); BILIRUBIN,TOTAL 0.8 mg/dL (0.2-1.0); CREATININE 2.1 mg/dL (0.5-1.5); POTASSIUM 4.5 mmol/L (3.5-5.1); TOTAL PROTEIN, SERUM 6.4 g/dL (6.0-8.3)
[2021-01-11 08:52] LABS: B-TYPE NATRIURETIC PEPTIDE 2720 pg/mL (0-100)
[2021-01-11] MEDS: FAMOTIDINE 20MG TAB 20 MG TAB PO SCH ×2 (09:19→21:51)
[2021-01-11] MEDS ORDERED: CARV12.511 PO (10:11)
[2021-01-11] MEDS ORDERED: AMLO10TA4 PO (10:11)
[2021-01-11] MEDS ORDERED: ISOS30TA92 PO (10:11)
[2021-01-11] MEDS ORDERED: FOLI1TAB85 PO (10:11)
[2021-01-11] MEDS ORDERED: SPIR50TA5 PO (10:11)
[2021-01-11] MEDS ORDERED: FURO40TA5 PO (10:11)
[2021-01-11] MEDS ORDERED: HYDR-4153 PO (10:11)
[2021-01-11] MEDS ORDERED: DOCU100C33 PO (10:11)
[2021-01-11] MEDS: FUROSEMIDE 20MG VIAL (10MG/ML) IV SCH ×2 (12:37→21:52)
[2021-01-11] MEDS ORDERED: METOLAZONE 2.5 MG TABLET PO SCH (13:35)
[2021-01-11] MEDS: CARVEDILOL 12.5 MG TABLET PO SCH (21:51)
[2021-01-11] MEDS: HYDRALAZINE HCL 25 MG TABLET PO SCH (21:51)
[2021-01-11] MEDS: INSULIN HUMULIN R 100 UNIT/ML 3ML SQ SCH (22:07)
[2021-01-12 00:39] VITALS: BP 156/81
[2021-01-12] MEDS ORDERED: HYDROXYZINE HCL 25 MG TABLET PO SCH (04:00)
[2021-01-12 04:04] VITALS: BP 140/89
[2021-01-12 04:21] LABS: HEMATOCRIT 30.9 % (42-54); MEAN CORPUSCULAR HEMOGLOBIN 20.2 pg (27.0-33.0); MEAN CORPUSCULAR VOLUME 62.9 fL (79-99); PLATELET COUNT (AUTO) 233 K/uL (130-400); RED BLOOD CELL COUNT(AUTO) 4.91 MIL/uL (4.50-6.20); RED CELL DISTRIBUTION WIDTH 20.7 % (11.0-15.5); WHITE BLOOD COUNT (AUTO) 6.5 K/uL (4.8-10.8)
[2021-01-12 04:36] LABS: % IRON SATURATION 11.1 % (30-44)
[2021-01-12 04:39] LABS: BAND NEUTROPHILS % (MANUAL) 2 % (0-2); EOSINOPHILS % (MANUAL) 2 % (1-6); LYMPHOCYTES % (MANUAL) 20 % (22-44); MAN.DIFF COMMENT-IMPRESSION MANUAL DIFFERENTIAL; MONOCYTES % (MANUAL) 13 % (2-9); SEGMENTED NEUTROPHILS % 63 % (40-70)
[2021-01-12 04:40] LABS: PLATELET MORPHOLOGY COMMENT ADEQUATE
[2021-01-12 04:41] LABS: CREATININE 2.1 mg/dL (0.5-1.5); PHOSPHORUS 4.7 mg/dL (2.5-4.9); POTASSIUM 4.7 mmol/L (3.5-5.1)
[2021-01-12] MEDS: FUROSEMIDE 20MG VIAL (10MG/ML) IV SCH ×2 (05:16→13:18)
[2021-01-12 07:00] VITALS: BP 144/97
[2021-01-12] MEDS: INSULIN HUMULIN R 100 UNIT/ML 3ML SQ SCH ×6 (07:27→20:13)
[2021-01-12] MEDS: CARVEDILOL 12.5 MG TABLET PO SCH ×2 (08:12→20:30)
[2021-01-12] MEDS: HYDRALAZINE HCL 25 MG TABLET PO SCH ×3 (08:12→20:30)
[2021-01-12] MEDS: FERROUS SULFATE 325 MG TABLET.DR PO SCH (08:12)
[2021-01-12] MEDS: SPIRONOLACTONE 25 MG TAB PO SCH (08:12)
[2021-01-12] MEDS: FAMOTIDINE 20MG TAB 20 MG TAB PO SCH ×2 (08:12→20:29)
[2021-01-12] MEDS: Vitamin B Complex/Vit C/Folic Acid PO SCH (08:12)
[2021-01-12] MEDS: AMLODIPINE BESYLATE 5 MG TAB PO SCH (08:13)
[2021-01-12] MEDS ORDERED: NON-FORMULARY MEDICATION 1 EACH (Amlodipine Besylate (Norvasc) 10 MG) PO SCH (09:00)
[2021-01-12] MEDS ORDERED: NON-FORMULARY MEDICATION 1 EACH (Ferrous Sulfate 325 MG) PO SCH (09:00)
[2021-01-12] MEDS ORDERED: NON-FORMULARY MEDICATION 1 EACH (Spironolactone 50 MG) PO SCH (09:00)
[2021-01-12] MEDS ORDERED: ISOSORBIDE MONO 30MG TAB SR PO SCH (09:00)
[2021-01-12] MEDS ORDERED: NON-FORMULARY MEDICATION 1 EACH (Vit B Cmplx 3/FA/Vit C/Biotin (Rena-Vite Rx Tablet) 1 EAC PO SCH (09:00)
[2021-01-12 11:00] VITALS: BP 149/85
[2021-01-12] MEDS ORDERED: PHARMACY COMMUNICATION MISC SCH (13:45)
[2021-01-12 15:00] VITALS: BP 139/75
[2021-01-12] MEDS: BUMETANIDE 0.25 MG/ML 80 ML IV SCH (15:39)
[2021-01-12 20:17] VITALS: BP 153/87
[2021-01-12] MEDS ORDERED: INSULIN GLARGINE 100 UNITS/ML 10 ML VIAL SQ SCH (21:00)
[2021-01-13] VITALS (7 sets, daily range): BP systolic 126–153; BP diastolic 76–93
[2021-01-13 04:29] LABS: HEMATOCRIT 30.9 % (42-54); MEAN CORPUSCULAR HGB CONC 32.7 g/dL (32.0-36.0); MEAN CORPUSCULAR VOLUME 64.1 fL (79-99); PLATELET COUNT (AUTO) 242 K/uL (130-400); RED BLOOD CELL COUNT(AUTO) 4.82 MIL/uL (4.50-6.20); RED CELL DISTRIBUTION WIDTH 21.1 % (11.0-15.5)
[2021-01-13 04:47] LABS: CREATININE 2.2 mg/dL (0.5-1.5); PHOSPHORUS 4.7 mg/dL (2.5-4.9); POTASSIUM 4.6 mmol/L (3.5-5.1)
[2021-01-13 05:26] LABS: BAND NEUTROPHILS % (MANUAL) 1 % (0-2); BASOPHILS % (MANUAL) 3 % (0-2); EOSINOPHILS % (MANUAL) 6 % (1-6); LYMPHOCYTES % (MANUAL) 27 % (22-44); MAN.DIFF COMMENT-IMPRESSION MANUAL DIFFERENTIAL; MONOCYTES % (MANUAL) 5 % (2-9); SEGMENTED NEUTROPHILS % 58 % (40-70)
[2021-01-13] MEDS: INSULIN HUMULIN R 100 UNIT/ML 3ML SQ SCH ×7 (06:14→19:50)
[2021-01-13] MEDS: FAMOTIDINE 20MG TAB 20 MG TAB PO SCH ×2 (10:50→19:50)
[2021-01-13] MEDS: Vitamin B Complex/Vit C/Folic Acid PO SCH (10:50)
[2021-01-13] MEDS: AMLODIPINE BESYLATE 5 MG TAB PO SCH (10:50)
[2021-01-13] MEDS: SPIRONOLACTONE 25 MG TAB PO SCH (10:50)
[2021-01-13] MEDS: ISOSORBIDE MONO 30MG TAB SR PO SCH (10:51)
[2021-01-13] MEDS: DOCUSATE SODIUM 100 MG CAP PO PRN (10:51)
[2021-01-13] MEDS: CARVEDILOL 12.5 MG TABLET PO SCH ×2 (10:51→19:49)
[2021-01-13] MEDS: FERROUS SULFATE 325 MG TABLET.DR PO SCH (10:51)
[2021-01-13] MEDS: HYDRALAZINE HCL 25 MG TABLET PO SCH ×3 (10:52→19:50)
[2021-01-13] MEDS: IRON SUCROSE COMPLEX 300 MG in SODIUM CHLORIDE 0.9% 50 ML IV SCH (12:35)
[2021-01-13] MEDS ORDERED: COMPOUND IV MISC 1 EACH IVSOLN MISC PRN (12:45)
[2021-01-13] MEDS: BUMETANIDE 0.25 MG/ML 80 ML IV SCH (14:09)
[2021-01-13] MEDS: TEMAZEPAM 15 MG CAPSULE PO SCH (19:48)
[2021-01-13] MEDS: INSULIN GLARGINE 100 UNITS/ML 10 ML VIAL SQ SCH (19:51)
[2021-01-14 04:01] VITALS: BP 141/77
[2021-01-14] MEDS: INSULIN HUMULIN R 100 UNIT/ML 3ML SQ SCH ×7 (06:25→21:49)
[2021-01-14 07:36] VITALS: BP 151/94
[2021-01-14 08:24] LABS: BASOPHILS % (AUTO) 0.6 % (0.0-5.0); EOSINOPHILS % (AUTO) 5.2 % (0.0-8.0); HEMATOCRIT 33.1 % (42-54); LYMPHOCYTES % (AUTO) 13.7 % (21.0-51.0); MEAN CORPUSCULAR HEMOGLOBIN 20.7 pg (27.0-33.0); MEAN CORPUSCULAR VOLUME 64.8 fL (79-99); MONOCYTES % (AUTO) 14.7 % (3.0-13.0); NEUTROPHILS % (AUTO) 65.7 % (40.0-77.0); PLATELET COUNT (AUTO) 270 K/uL (130-400); RED BLOOD CELL COUNT(AUTO) 5.11 MIL/uL (4.50-6.20); WHITE BLOOD COUNT (AUTO) 6.9 K/uL (4.8-10.8)
[2021-01-14 08:30] LABS: CREATININE 2.3 mg/dL (0.5-1.5); POTASSIUM 4.3 mmol/L (3.5-5.1)
[2021-01-14] MEDS: AMLODIPINE BESYLATE 5 MG TAB PO SCH (08:46)
[2021-01-14] MEDS: SPIRONOLACTONE 25 MG TAB PO SCH (08:46)
[2021-01-14] MEDS: HYDRALAZINE HCL 25 MG TABLET PO SCH ×3 (08:46→21:47)
[2021-01-14] MEDS: FAMOTIDINE 20MG TAB 20 MG TAB PO SCH ×2 (08:47→21:47)
[2021-01-14] MEDS: ISOSORBIDE MONO 30MG TAB SR PO SCH (08:48)
[2021-01-14] MEDS: Vitamin B Complex/Vit C/Folic Acid PO SCH (08:48)
[2021-01-14] MEDS: CARVEDILOL 12.5 MG TABLET PO SCH ×2 (08:49→21:47)
[2021-01-14] MEDS: IRON SUCROSE COMPLEX 300 MG in SODIUM CHLORIDE 0.9% 50 ML IV SCH (08:50)
[2021-01-14 11:22] VITALS: BP 143/88
[2021-01-14 16:18] VITALS: BP 136/81
[2021-01-14 20:12] VITALS: BP 138/80
[2021-01-14] MEDS: TEMAZEPAM 15 MG CAPSULE PO SCH (21:46)
[2021-01-14] MEDS: BUMETANIDE 0.25 MG/ML 4 ML VIAL IVP SCH (21:48)
[2021-01-14] MEDS: INSULIN GLARGINE 100 UNITS/ML 10 ML VIAL SQ SCH (21:50)
[2021-01-15] VITALS (8 sets, daily range): BP systolic 139–155; BP diastolic 73–91
[2021-01-15] MEDS: BUMETANIDE 0.25 MG/ML 4 ML VIAL IVP SCH ×2 (05:25→13:08)
[2021-01-15 05:43] LABS: CREATININE 2.2 mg/dL (0.5-1.5); MAGNESIUM 1.8 mg/dL (1.80-2.40); POTASSIUM 4.2 mmol/L (3.5-5.1)
[2021-01-15] MEDS: INSULIN HUMULIN R 100 UNIT/ML 3ML SQ SCH ×7 (07:09→20:01)
[2021-01-15] MEDS: IRON SUCROSE COMPLEX 300 MG in SODIUM CHLORIDE 0.9% 50 ML IV SCH (07:18)
[2021-01-15] MEDS: SPIRONOLACTONE 25 MG TAB PO SCH (07:22)
[2021-01-15] MEDS: CARVEDILOL 12.5 MG TABLET PO SCH ×2 (07:22→20:09)
[2021-01-15] MEDS: AMLODIPINE BESYLATE 5 MG TAB PO SCH (07:23)
[2021-01-15] MEDS: DOCUSATE SODIUM 100 MG CAP PO PRN (07:23)
[2021-01-15] MEDS: FAMOTIDINE 20MG TAB 20 MG TAB PO SCH ×2 (07:23→20:09)
[2021-01-15] MEDS: Vitamin B Complex/Vit C/Folic Acid PO SCH (07:23)
[2021-01-15] MEDS: HYDRALAZINE HCL 25 MG TABLET PO SCH ×3 (07:23→20:09)
[2021-01-15] MEDS: ISOSORBIDE MONO 30MG TAB SR PO SCH (07:23)
[2021-01-15] MEDS ORDERED: ARTIFICAL TEARS SOL 15 ML OU PRN (12:15)
[2021-01-15] MEDS: BUMETANIDE 1 MG TAB PO SCH (20:07)
[2021-01-15] MEDS: TEMAZEPAM 15 MG CAPSULE PO SCH (20:09)
[2021-01-15] MEDS: INSULIN GLARGINE 100 UNITS/ML 10 ML VIAL SQ SCH (20:11)
[2021-01-16 03:30] VITALS: BP 142/78
[2021-01-16 06:04] LABS: BASOPHILS % (AUTO) 0.7 % (0.0-5.0); EOSINOPHILS % (AUTO) 5.2 % (0.0-8.0); HEMATOCRIT 32.5 % (42-54); LYMPHOCYTES % (AUTO) 14.7 % (21.0-51.0); MEAN CORPUSCULAR HEMOGLOBIN 20.9 pg (27.0-33.0); MEAN CORPUSCULAR VOLUME 65.4 fL (79-99); MONOCYTES % (AUTO) 13.7 % (3.0-13.0); NEUTROPHILS % (AUTO) 65.5 % (40.0-77.0); PLATELET COUNT (AUTO) 234 K/uL (130-400); RED BLOOD CELL COUNT(AUTO) 4.97 MIL/uL (4.50-6.20); RED CELL DISTRIBUTION WIDTH 21.2 % (11.0-15.5)
[2021-01-16 06:15] LABS: CREATININE 2.3 mg/dL (0.5-1.5); POTASSIUM 4.3 mmol/L (3.5-5.1)
[2021-01-16] MEDS: INSULIN HUMULIN R 100 UNIT/ML 3ML SQ SCH ×4 (06:32→11:53)
[2021-01-16 07:00] VITALS: BP 139/87
[2021-01-16] MEDS: HYDRALAZINE HCL 25 MG TABLET PO SCH (08:45)
[2021-01-16] MEDS: BUMETANIDE 1 MG TAB PO SCH (08:45)
[2021-01-16] MEDS: IRON SUCROSE COMPLEX 300 MG in SODIUM CHLORIDE 0.9% 50 ML IV SCH (08:45)
[2021-01-16] MEDS: ISOSORBIDE MONO 30MG TAB SR PO SCH (08:46)
[2021-01-16] MEDS: SPIRONOLACTONE 25 MG TAB PO SCH (08:46)
[2021-01-16] MEDS: AMLODIPINE BESYLATE 5 MG TAB PO SCH (08:46)
[2021-01-16] MEDS: Vitamin B Complex/Vit C/Folic Acid PO SCH (08:46)
[2021-01-16] MEDS: FAMOTIDINE 20MG TAB 20 MG TAB PO SCH (08:46)
[2021-01-16] MEDS: CARVEDILOL 12.5 MG TABLET PO SCH (08:47)
[2021-01-16 11:00] VITALS: BP 136/78
[2021-01-16] MEDS ORDERED: ISOS60TA77 PO (14:12)
[2021-01-16] MEDS ORDERED: BUME2TAB5 PO ×2 (14:12→14:17)
[2021-01-16] MEDS ORDERED: HYDR-4154 PO (14:12)
== END 2021-01-16 15:30 | disposition home or self-care (01) | DRG 291 ==
LOC: EDH 00:39 → EDHIP 00:40 → 4CH 08:18
PROVIDERS: ADMIT Family Medicine; ATTEND Family Medicine
DX: I13.0 Hypertensive heart and chronic kidney disease with heart failure and stage 1 through stage 4 chronic kidney disease, or unspecified chronic kidney disease (principal); I50.23 Acute on chronic systolic (congestive) heart failure; J96.01 Acute respiratory failure with hypoxia; N17.9 Acute kidney failure, unspecified; J98.11 Atelectasis; N04.9 Nephrotic syndrome with unspecified morphologic changes; E87.5 Hyperkalemia; E11.22 Type 2 diabetes mellitus with diabetic chronic kidney disease; E87.70 Fluid overload, unspecified; E11.65 Type 2 diabetes mellitus with hyperglycemia; F14.10 Cocaine abuse, uncomplicated; F41.9 Anxiety disorder, unspecified; I42.0 Dilated cardiomyopathy; N05.9 Unspecified nephritic syndrome with unspecified morphologic changes; E78.5 Hyperlipidemia, unspecified; I25.10 Atherosclerotic heart disease of native coronary artery without angina pectoris; N18.32 Chronic kidney disease, stage 3b; N50.89 Other specified disorders of the male genital organs; Z79.4 Long term (current) use of insulin; Z79.899 Other long term (current) drug therapy; Z87.441 Personal history of nephrotic syndrome; Z91.19 Patient's noncompliance with other medical treatment and regimen; Z82.3 Family history of stroke; Z83.3 Family history of diabetes mellitus; Z82.49 Family history of ischemic heart disease and other diseases of the circulatory system
CPT/HCPCS: 36415; 71045; 80048; 80053; 80305; 81001; 82728; 82948; 83036; 83540; 83550; 83735; 83880; 84100; 84443; 84484; 85025; 85027; 85610; 93005; G0378; J1756; J1815; J1940; J3490

== ENCOUNTER 2021-02-12 22:06 | Inpatient (IN) | payer OTHER ==
[~2021-02-12] VITALS: Ht 172.7 cm; Wt 95.7 kg
[~2021-02-12 22:06] MED LIST changes: +AMLO10TA4 PO; +BUME2TAB5 PO; +CARV12.511 PO; +DOCU100C33 PO; -FOLI0.8T22 PO; +FOLI1TAB85 PO; +HYDR-4154 PO; +ISOS60TA77 PO; -LISI20TA24 PO; +SPIR50TA5 PO; -TORS100T16 PO
[2021-02-12 22:16] VITALS: BP 156/74
[2021-02-12 22:29] LABS: BASOPHILS % (AUTO) 0.8 % (0.0-5.0); EOSINOPHILS % (AUTO) 3.4 % (0.0-8.0); HEMATOCRIT 29.2 % (42-54); LYMPHOCYTES % (AUTO) 18.1 % (21.0-51.0); MEAN CORPUSCULAR HEMOGLOBIN 21.6 pg (27.0-33.0); MEAN CORPUSCULAR HGB CONC 32.2 g/dL (32.0-36.0); MEAN CORPUSCULAR VOLUME 67.1 fL (79-99); MONOCYTES % (AUTO) 18.2 % (3.0-13.0); NEUTROPHILS % (AUTO) 59.2 % (40.0-77.0); PLATELET COUNT (AUTO) 224 K/uL (130-400); RED BLOOD CELL COUNT(AUTO) 4.35 MIL/uL (4.50-6.20); RED CELL DISTRIBUTION WIDTH 18.8 % (11.0-15.5); WHITE BLOOD COUNT (AUTO) 6.1 K/uL (4.8-10.8)
[2021-02-12 22:38] LABS: INR 1.09 (0.85-1.15); PROTHROMBIN TIME 11.8 SEC (9.6-11.6)
[2021-02-12 22:51] LABS: B-TYPE NATRIURETIC PEPTIDE 2700 pg/mL (0-100)
[2021-02-12] MEDS ORDERED: FERR-72 PO (22:53)
[2021-02-12] MEDS ORDERED: SPIR25TA6 PO (22:53)
[2021-02-12] MEDS ORDERED: CARV12.511 PO (22:53)
[2021-02-12] MEDS ORDERED: DOCU100C33 PO (22:53)
[2021-02-12] MEDS ORDERED: FURO80TA3 PO (22:53)
[2021-02-12] MEDS ORDERED: LISI10TA24 PO (22:53)
[2021-02-12] MEDS ORDERED: AMLO-258 PO (22:53)
[2021-02-12] MEDS ORDERED: OFLO5DRO OD (22:53)
[2021-02-12 22:55] LABS: POTASSIUM 4.7 mmol/L (3.5-5.1)
[2021-02-12] MEDS ORDERED: FUROSEMIDE 40MG VIAL IV ONE (23:00)
[2021-02-12 23:01] LABS: ALBUMIN 2.4 g/dL (3.5-5.0); BILIRUBIN,TOTAL 1.2 mg/dL (0.2-1.0); CREATININE 2.2 mg/dL (0.5-1.5); MAGNESIUM 2.3 mg/dL (1.80-2.40); TOTAL PROTEIN, SERUM 6.7 g/dL (6.0-8.3)
[2021-02-13] MEDS ORDERED: DEXTROSE 50%-WATER 50 ML DISP.SYRIN IV PRN (01:00)
[2021-02-13] MEDS ORDERED: GLUCAGON 1MG KIT 1 MG ML IM PRN (01:00)
[2021-02-13] MEDS ORDERED: ACETAMINOPHEN 325 MG TAB PO PRN ×2 (01:00)
[2021-02-13] MEDS ORDERED: ONDANSETRON 4MG INJ IV PRN (01:00)
[2021-02-13] MEDS ORDERED: NITROGLYCERIN 0.4 MG SL TAB SL PRN (01:00)
[2021-02-13] MEDS ORDERED: DIPHENHYDRAMINE HCL 25 MG CAPSULE ONE (01:28)
[2021-02-13 01:50] LABS: HEMOGLOBIN A1C 9.5 % (4.0-6.0)
[2021-02-13 02:25] VITALS: BP 140/75
[2021-02-13 02:25] LABS: APPEARANCE,URINE Clear (CLEAR); BILIRUBIN,URINE Negative (NEGATIVE); COLOR,URINE Yellow (YELLOW); GLUCOSE, URINE (UA) Negative (NEGATIVE); KETONES,URINE Negative (NEGATIVE); LEUKOCYTE ESTERASE ,URINE Negative (NEGATIVE); NITRATE,URINE Negative (NEGATIVE); OCCULT BLOOD,URINE Negative (NEGATIVE); PROTEIN,URINE POS 1+ mg/dL (NEGATIVE)
[2021-02-13 02:33] LABS: AMPHET/METH SCREEN,URINE NEGATIVE (NEGATIVE); BARBITURATE SCREEN, URINE NEGATIVE (NEGATIVE); BENZODIAZEPINES SCREEN,URINE NEGATIVE (NEGATIVE); CANNABINOID SCREEN,URINE NEGATIVE (NEGATIVE); COCAINE SCREEN,URINE NEGATIVE (NEGATIVE); OPIATE SCREEN,URINE NEGATIVE (NEGATIVE); PHENCYCLIDINE SCREEN,URINE NEGATIVE (NEGATIVE)
[2021-02-13 02:38] LABS: RBC,URINE 0-1 /HPF (0-1); WBC,URINE None Seen /HPF (0-1)
[2021-02-13 02:39] LABS: BACTERIA,URINE Rare /HPF (None Seen)
[2021-02-13 02:52] LABS: % IRON SATURATION 12.8 % (30-44)
[2021-02-13 03:00] VITALS: BP 150/81
[2021-02-13 04:08] LABS: BASOPHILS % (AUTO) 0.9 % (0.0-5.0); EOSINOPHILS % (AUTO) 3.7 % (0.0-8.0); HEMATOCRIT 28.8 % (42-54); MEAN CORPUSCULAR HEMOGLOBIN 21.4 pg (27.0-33.0); MEAN CORPUSCULAR HGB CONC 32.3 g/dL (32.0-36.0); MEAN CORPUSCULAR VOLUME 66.2 fL (79-99); MONOCYTES % (AUTO) 20.5 % (3.0-13.0); NEUTROPHILS % (AUTO) 58.7 % (40.0-77.0); PLATELET COUNT (AUTO) 211 K/uL (130-400); RED BLOOD CELL COUNT(AUTO) 4.35 MIL/uL (4.50-6.20); RED CELL DISTRIBUTION WIDTH 18.7 % (11.0-15.5); WHITE BLOOD COUNT (AUTO) 5.8 K/uL (4.8-10.8)
[2021-02-13] MEDS ORDERED: DOCUSATE SODIUM 100 MG CAP PO PRN (04:30)
[2021-02-13 04:34] LABS: ALANINE AMINOTRANSFERASE 79 U/L (12-78); ALBUMIN 2.2 g/dL (3.5-5.0); ASPARTATE AMINOTRANSFERASE 58 U/L (10-37); BILIRUBIN,TOTAL 1.1 mg/dL (0.2-1.0); CARBON DIOXIDE 24 mmol/L (21-32); CHLORIDE 102 mmol/L (101-111); CHOLESTEROL 163 mg/dL (<200); CREATINE KINASE, TOTAL 398 U/L (21-232); CREATININE 2.1 mg/dL (0.5-1.5); GLOMERULAR FILTR. RATE CALC 43 mL/min (>60); GLUCOSE,RANDOM 80 mg/dL (70-105); HDL CHOLESTEROL 88 mg/dL (29-71); LDL DIRECT 41 mg/dL (0-99); MYOGLOBIN 205 ng/mL (10-92); POTASSIUM 4.8 mmol/L (3.5-5.1); SODIUM SERUM 135 mmol/L (136-145); TOTAL PROTEIN, SERUM 6.9 g/dL (6.0-8.3); TRIGLYCERIDES 15 mg/dL (30-200); TROPONIN I < 0.04 ng/mL (0.00-0.06); UREA NITROGEN, BLOOD 57 mg/dL (7-18)
[2021-02-13] MEDS: DIPHENHYDRAMINE HCL 25 MG CAPSULE PO PRN ×2 (05:02→23:00)
[2021-02-13] MEDS: FUROSEMIDE 40MG VIAL IV SCH ×3 (05:03→21:26)
[2021-02-13] MEDS: INSULIN HUMULIN R 100 UNIT/ML 3ML SQ SCH ×4 (06:15→21:28)
[2021-02-13 08:00] VITALS: BP 169/86
[2021-02-13] MEDS ORDERED: AMLODIPINE 5 MG TAB PO SCH (09:00)
[2021-02-13] MEDS ORDERED: SPIRONOLACTONE 25 MG TAB PO SCH (09:00)
[2021-02-13] MEDS: FAMOTIDINE 20MG TAB PO SCH ×2 (10:07→21:26)
[2021-02-13] MEDS: FERROUS GLUCONATE 325 MG TABLET PO SCH ×2 (10:07→17:01)
[2021-02-13] MEDS: CARVEDILOL 12.5 MG TABLET PO SCH ×2 (10:08→21:26)
[2021-02-13] MEDS: ENOXAPARIN SODIUM 30 MG/0.3 ML SQ SCH (10:09)
[2021-02-13 10:56] LABS: MYOGLOBIN 198 ng/mL (10-92); TROPONIN I < 0.04 ng/mL (0.00-0.06)
[2021-02-13 11:07] LABS: CREATINE KINASE, TOTAL 430 U/L (21-232)
[2021-02-13 12:00] VITALS: BP 141/81
[2021-02-13 16:00] VITALS: BP 150/81
[2021-02-13 19:40] VITALS: BP 147/84
[2021-02-14] VITALS (7 sets, daily range): BP systolic 132–156; BP diastolic 7–91
[2021-02-14 03:51] LABS: BASOPHILS % (AUTO) 0.8 % (0.0-5.0); EOSINOPHILS % (AUTO) 3.9 % (0.0-8.0); HEMATOCRIT 29.4 % (42-54); LYMPHOCYTES % (AUTO) 17.7 % (21.0-51.0); MEAN CORPUSCULAR HEMOGLOBIN 21.6 pg (27.0-33.0); MEAN CORPUSCULAR VOLUME 67.4 fL (79-99); MONOCYTES % (AUTO) 16.9 % (3.0-13.0); NEUTROPHILS % (AUTO) 60.5 % (40.0-77.0); PLATELET COUNT (AUTO) 228 K/uL (130-400); RED BLOOD CELL COUNT(AUTO) 4.36 MIL/uL (4.50-6.20); RED CELL DISTRIBUTION WIDTH 18.4 % (11.0-15.5); WHITE BLOOD COUNT (AUTO) 5.9 K/uL (4.8-10.8)
[2021-02-14] MEDS: FUROSEMIDE 40MG VIAL IV SCH ×2 (04:07→12:20)
[2021-02-14 04:10] LABS: % IRON SATURATION 15.6 % (30-44)
[2021-02-14 04:20] LABS: ALBUMIN 2.2 g/dL (3.5-5.0); CREATININE 2.1 mg/dL (0.5-1.5); PHOSPHORUS 4.8 mg/dL (2.5-4.9); POTASSIUM 5.3 mmol/L (3.5-5.1); THYROID STIMULATING HORMONE 3.05 uIU/mL (0.36-3.74); TOTAL PROTEIN, SERUM 6.9 g/dL (6.0-8.3); URIC ACID 9.8 mg/dL (2.6-7.2)
[2021-02-14] MEDS: INSULIN HUMULIN R 100 UNIT/ML 3ML SQ SCH ×4 (06:25→21:00)
[2021-02-14] MEDS: Vitamin B Complex/Vit C/Folic Acid PO SCH (09:51)
[2021-02-14] MEDS: FERROUS GLUCONATE 325 MG TABLET PO SCH ×2 (09:51→17:09)
[2021-02-14] MEDS: FAMOTIDINE 20MG TAB PO SCH ×2 (09:51→21:00)
[2021-02-14] MEDS: CARVEDILOL 12.5 MG TABLET PO SCH ×2 (09:52→21:00)
[2021-02-14] MEDS: ENOXAPARIN SODIUM 30 MG/0.3 ML SQ SCH (09:55)
[2021-02-14] MEDS ORDERED: NA ZIRCON CYCLOSIL(LOKELMA 10GM) PO NR (12:00)
[2021-02-14] MEDS ORDERED: PHARMACY COMMUNICATION MISC SCH (12:00)
[2021-02-14] MEDS ORDERED: COMPOUND IV MISC 1 EACH IVSOLN MISC PRN (13:00)
[2021-02-14] MEDS: IRON SUCROSE COMPLEX 300 MG in 0.9%NACL 50ML 50 ML IV SCH (15:13)
[2021-02-15 04:08] VITALS: BP 154/81
[2021-02-15] MEDS: FUROSEMIDE 40MG VIAL IV SCH ×4 (04:36→22:09)
[2021-02-15 05:05] LABS: HEMATOCRIT 28.4 % (42-54); MEAN CORPUSCULAR HEMOGLOBIN 21.5 pg (27.0-33.0); MEAN CORPUSCULAR HGB CONC 32.4 g/dL (32.0-36.0); MEAN CORPUSCULAR VOLUME 66.5 fL (79-99); PLATELET COUNT (AUTO) 208 K/uL (130-400); RED BLOOD CELL COUNT(AUTO) 4.27 MIL/uL (4.50-6.20); RED CELL DISTRIBUTION WIDTH 18.6 % (11.0-15.5); WHITE BLOOD COUNT (AUTO) 5.5 K/uL (4.8-10.8)
[2021-02-15 05:12] LABS: POTASSIUM 4.9 mmol/L (3.5-5.1)
[2021-02-15 06:08] LABS: BASOPHILS % (MANUAL) 1 % (0-2); EOSINOPHILS % (MANUAL) 2 % (1-6); LYMPHOCYTES % (MANUAL) 14 % (22-44); MAN.DIFF COMMENT-IMPRESSION MANUAL DIFFERENTIAL; MONOCYTES % (MANUAL) 18 % (2-9); SEGMENTED NEUTROPHILS % 65 % (40-70)
[2021-02-15 06:09] LABS: PLATELET MORPHOLOGY COMMENT ADEQUATE
[2021-02-15 06:13] LABS: ALBUMIN 2.3 g/dL (3.5-5.0); BILIRUBIN,DIRECT 0.6 mg/dL (0.0-0.3); BILIRUBIN,TOTAL 0.9 mg/dL (0.2-1.0); TOTAL PROTEIN, SERUM 6.8 g/dL (6.0-8.3)
[2021-02-15] MEDS: INSULIN HUMULIN R 100 UNIT/ML 3ML SQ SCH ×4 (07:30→21:00)
[2021-02-15 08:35] VITALS: BP 151/88
[2021-02-15] MEDS: FAMOTIDINE 20MG TAB PO SCH ×2 (09:46→22:10)
[2021-02-15] MEDS: IRON SUCROSE COMPLEX 300 MG in 0.9%NACL 50ML 50 ML IV SCH (09:47)
[2021-02-15] MEDS: CARVEDILOL 12.5 MG TABLET PO SCH ×2 (09:47→22:10)
[2021-02-15] MEDS: FERROUS GLUCONATE 325 MG TABLET PO SCH ×2 (09:47→16:40)
[2021-02-15] MEDS: Vitamin B Complex/Vit C/Folic Acid PO SCH (09:47)
[2021-02-15] MEDS: ENOXAPARIN SODIUM 30 MG/0.3 ML SQ SCH (09:48)
[2021-02-15] MEDS: HYDRALAZINE 25MG TABLET PO SCH ×3 (09:53→22:09)
[2021-02-15 12:06] VITALS: BP 160/95
[2021-02-15] MEDS: INSULIN GLARGINE 100 UNITS/ML 10 ML VIAL SQ SCH (12:52)
[2021-02-15 16:48] VITALS: BP 151/88
[2021-02-15 20:11] VITALS: BP 165/85
[2021-02-15 23:50] VITALS: BP 150/67
[2021-02-16] MEDS ORDERED: HYDROXYZINE 25 MG TABLET ONE ×2 (01:39→22:25)
[2021-02-16] MEDS ORDERED: HYDROXYZINE 25 MG TABLET PO ONE ×2 (02:00→22:30)
[2021-02-16 04:04] VITALS: BP 147/82
[2021-02-16 07:25] LABS: ALBUMIN 2.3 g/dL (3.5-5.0); BILIRUBIN,TOTAL 1.2 mg/dL (0.2-1.0); CREATININE 2.1 mg/dL (0.5-1.5); MAGNESIUM 2.1 mg/dL (1.80-2.40)
[2021-02-16] MEDS: INSULIN HUMULIN R 100 UNIT/ML 3ML SQ SCH ×4 (07:27→21:00)
[2021-02-16 07:54] VITALS: BP 150/97
[2021-02-16] MEDS: HYDRALAZINE 25MG TABLET PO SCH ×3 (09:38→23:10)
[2021-02-16] MEDS: FAMOTIDINE 20MG TAB PO SCH ×2 (09:38→23:10)
[2021-02-16] MEDS: Vitamin B Complex/Vit C/Folic Acid PO SCH (09:39)
[2021-02-16] MEDS: CARVEDILOL 12.5 MG TABLET PO SCH ×2 (09:39→23:10)
[2021-02-16] MEDS: FUROSEMIDE 40MG VIAL IV SCH ×3 (09:39→23:11)
[2021-02-16] MEDS: ENOXAPARIN SODIUM 30 MG/0.3 ML SQ SCH (09:41)
[2021-02-16] MEDS: IRON SUCROSE COMPLEX 300 MG in 0.9%NACL 50ML 50 ML IV SCH (09:43)
[2021-02-16] MEDS: FERROUS GLUCONATE 325 MG TABLET PO SCH ×2 (09:43→16:49)
[2021-02-16 11:37] VITALS: BP 142/82
[2021-02-16] MEDS: INSULIN GLARGINE 100 UNITS/ML 10 ML VIAL SQ SCH (12:09)
[2021-02-16 16:00] VITALS: BP 154/89
[2021-02-16 20:12] VITALS: BP 161/83
[2021-02-17] MEDS ORDERED: TEMAZEPAM 15 MG CAPSULE ONE (00:07)
[2021-02-17 00:12] VITALS: BP 154/85
[2021-02-17 04:12] VITALS: BP 147/78
[2021-02-17] MEDS: FUROSEMIDE 40MG VIAL IV SCH (05:30)
[2021-02-17] MEDS: INSULIN HUMULIN R 100 UNIT/ML 3ML SQ SCH ×2 (05:33→12:16)
[2021-02-17 05:58] LABS: BASOPHILS % (AUTO) 0.7 % (0.0-5.0); EOSINOPHILS % (AUTO) 4.4 % (0.0-8.0); LYMPHOCYTES % (AUTO) 17.4 % (21.0-51.0); MEAN CORPUSCULAR HEMOGLOBIN 21.5 pg (27.0-33.0); MEAN CORPUSCULAR HGB CONC 31.7 g/dL (32.0-36.0); MONOCYTES % (AUTO) 18.5 % (3.0-13.0); NEUTROPHILS % (AUTO) 58.6 % (40.0-77.0); PLATELET COUNT (AUTO) 218 K/uL (130-400); RED BLOOD CELL COUNT(AUTO) 4.41 MIL/uL (4.50-6.20); RED CELL DISTRIBUTION WIDTH 18.9 % (11.0-15.5); WHITE BLOOD COUNT (AUTO) 5.4 K/uL (4.8-10.8)
[2021-02-17] MEDS ORDERED: TEMAZEPAM 15 MG CAPSULE PO ONE (06:00)
[2021-02-17 06:36] LABS: ALBUMIN 2.4 g/dL (3.5-5.0); BILIRUBIN,DIRECT 1.3 mg/dL (0.0-0.3); BILIRUBIN,TOTAL 1.7 mg/dL (0.2-1.0); CREATININE 2.2 mg/dL (0.5-1.5); MAGNESIUM 2.1 mg/dL (1.80-2.40); POTASSIUM 4.8 mmol/L (3.5-5.1); TOTAL PROTEIN, SERUM 7.4 g/dL (6.0-8.3)
[2021-02-17 07:44] VITALS: BP 157/95
[2021-02-17] MEDS ORDERED: FUROSEMIDE 80 MG TABLET PO SCH (08:00)
[2021-02-17] MEDS: FERROUS GLUCONATE 325 MG TABLET PO SCH (09:11)
[2021-02-17] MEDS: FAMOTIDINE 20MG TAB PO SCH (09:11)
[2021-02-17] MEDS: HYDRALAZINE 25MG TABLET PO SCH ×2 (09:11→12:17)
[2021-02-17] MEDS: CARVEDILOL 12.5 MG TABLET PO SCH (09:11)
[2021-02-17] MEDS: Vitamin B Complex/Vit C/Folic Acid PO SCH (09:15)
[2021-02-17] MEDS: IRON SUCROSE COMPLEX 300 MG in 0.9%NACL 50ML 50 ML IV SCH (09:15)
[2021-02-17] MEDS ORDERED: HYDROCORTISONE 1% CREAM 28G TP SCH (11:00)
[2021-02-17 12:04] VITALS: BP 157/94
[2021-02-17] MEDS: INSULIN GLARGINE 100 UNITS/ML 10 ML VIAL SQ SCH (12:17)
[2021-02-17 16:06] VITALS: BP 157/93
== END 2021-02-17 16:53 | disposition home or self-care (01) | DRG 291 ==
LOC: EDH 22:25 → EDHIP 02-13 00:29 → 4CH 02-13 03:06
PROVIDERS: ADMIT Internal Medicine; ATTEND Internal Medicine
DX: I13.0 Hypertensive heart and chronic kidney disease with heart failure and stage 1 through stage 4 chronic kidney disease, or unspecified chronic kidney disease (principal); I50.23 Acute on chronic systolic (congestive) heart failure; K83.1 Obstruction of bile duct; E87.1 Hypo-osmolality and hyponatremia; N17.9 Acute kidney failure, unspecified; N04.9 Nephrotic syndrome with unspecified morphologic changes; N18.30 Chronic kidney disease, stage 3 unspecified; L29.9 Pruritus, unspecified; D50.9 Iron deficiency anemia, unspecified; E11.22 Type 2 diabetes mellitus with diabetic chronic kidney disease; E78.5 Hyperlipidemia, unspecified; F14.10 Cocaine abuse, uncomplicated; I25.10 Atherosclerotic heart disease of native coronary artery without angina pectoris; I42.0 Dilated cardiomyopathy; E87.5 Hyperkalemia; Z20.822 Contact with and (suspected) exposure to COVID-19; K76.9 Liver disease, unspecified; Z82.49 Family history of ischemic heart disease and other diseases of the circulatory system; Z83.3 Family history of diabetes mellitus; Z87.891 Personal history of nicotine dependence; Z91.11 Patient's noncompliance with dietary regimen; Z91.19 Patient's noncompliance with other medical treatment and regimen; Z71.3 Dietary counseling and surveillance; Z71.51 Drug abuse counseling and surveillance of drug abuser
CPT/HCPCS: 36415; 71045; 76705; 80048; 80053; 80061; 80076; 80305; 81001; 82550; 82607; 82728; 82948; 82977; 83036; 83540; 83550; 83735; 83874; 83880; 84100; 84443; 84484; 84550; 85025; 85610; 87635; 93005; G0378; J1650; J1756; J1815; J1940; Q0163

== ENCOUNTER 2021-02-23 01:06 | Inpatient (IN) | payer OTHER ==
[2021-02-23] VITALS (11 sets, daily range): BP systolic 142–165; BP diastolic 71–99
[~2021-02-23] VITALS: Ht 175.3 cm; Wt 99.8 kg
[~2021-02-23 01:06] MED LIST changes: -AMLO10TA4 PO; -BUME2TAB5 PO; +FERR-72 PO; -FERS325 PO; +FURO80TA3 PO; -SPIR50TA5 PO
[2021-02-23 01:38] LABS: BASOPHILS % (AUTO) 0.9 % (0.0-5.0); EOSINOPHILS % (AUTO) 2.8 % (0.0-8.0); HEMATOCRIT 28.4 % (42-54); LYMPHOCYTES % (AUTO) 16.5 % (21.0-51.0); MEAN CORPUSCULAR HEMOGLOBIN 22.4 pg (27.0-33.0); MEAN CORPUSCULAR HGB CONC 32.7 g/dL (32.0-36.0); MEAN CORPUSCULAR VOLUME 68.3 fL (79-99); MONOCYTES % (AUTO) 17.1 % (3.0-13.0); NEUTROPHILS % (AUTO) 62.1 % (40.0-77.0); PLATELET COUNT (AUTO) 223 K/uL (130-400); RED BLOOD CELL COUNT(AUTO) 4.16 MIL/uL (4.50-6.20); RED CELL DISTRIBUTION WIDTH 19.7 % (11.0-15.5); WHITE BLOOD COUNT (AUTO) 6.9 K/uL (4.8-10.8)
[2021-02-23 01:49] LABS: CREATININE 2.1 mg/dL (0.5-1.5); POTASSIUM 5.1 mmol/L (3.5-5.1)
[2021-02-23 01:51] LABS: INR 1.09 (0.85-1.15); PROTHROMBIN TIME 11.8 SEC (9.6-11.6)
[2021-02-23 01:52] LABS: PARTIAL THROMBOPLASTIN TIME 24.6 SEC (26.3-35.5)
[2021-02-23 02:02] LABS: ALBUMIN 2.3 g/dL (3.5-5.0); BILIRUBIN,TOTAL 2.2 mg/dL (0.2-1.0); TOTAL PROTEIN, SERUM 6.5 g/dL (6.0-8.3)
[2021-02-23 02:04] LABS: B-TYPE NATRIURETIC PEPTIDE 3430 pg/mL (0-100)
[2021-02-23] MEDS ORDERED: FUROSEMIDE 40MG VIAL IV ONE (03:30)
[2021-02-23] MEDS ORDERED: DiphenhydrAMINE HCL 50 MG/ML VIAL IV ONE (03:30)
[2021-02-23] MEDS ORDERED: DEXTROSE 50%-WATER 50 ML DISP.SYRIN IV PRN (05:00)
[2021-02-23] MEDS ORDERED: ACETAMINOPHEN 325 MG TAB PO PRN ×2 (05:00)
[2021-02-23] MEDS ORDERED: ONDANSETRON 4MG INJ IV PRN (05:00)
[2021-02-23] MEDS: FUROSEMIDE 40MG VIAL IV SCH ×2 (05:00→13:00)
[2021-02-23] MEDS ORDERED: GLUCAGON 1MG KIT 1 MG ML IM PRN (05:00)
[2021-02-23] MEDS ORDERED: HYDROXYZINE 25 MG TABLET PO ONE (05:00)
[2021-02-23] MEDS: INSULIN HUMULIN R 100 UNIT/ML 3ML SQ SCH ×3 (07:34→16:45)
[2021-02-23] MEDS ORDERED: HEPARIN 5,000 UNIT VIAL SQ SCH (08:30)
[2021-02-23] MEDS ORDERED: FAMOTIDINE 20MG TAB PO SCH (09:00)
[2021-02-23] MEDS ORDERED: ISOSORBIDE MONO 60MG SR TAB PO SCH (09:00)
[2021-02-23] MEDS: HYDRALAZINE 25MG TABLET PO SCH ×2 (09:29→14:07)
[2021-02-23 11:14] LABS: AMPHET/METH SCREEN,URINE NEGATIVE (NEGATIVE); BARBITURATE SCREEN, URINE NEGATIVE (NEGATIVE); BENZODIAZEPINES SCREEN,URINE NEGATIVE (NEGATIVE); CANNABINOID SCREEN,URINE NEGATIVE (NEGATIVE); COCAINE SCREEN,URINE NEGATIVE (NEGATIVE); OPIATE SCREEN,URINE NEGATIVE (NEGATIVE); PHENCYCLIDINE SCREEN,URINE NEGATIVE (NEGATIVE)
[2021-02-23] MEDS ORDERED: INSULIN GLARGINE 100 UNITS/ML 10 ML VIAL SQ SCH (11:30)
[2021-02-23 15:35] LABS: LACTATE DEHYDROGENASE 216 U/L (81-234)
[2021-02-23 15:38] LABS: GAMMA GLUTAMYL TRANSFERASE 1050 U/L (5-85)
[2021-02-23 15:54] LABS: % IRON SATURATION 16.9 % (30-44)
[2021-02-23] MEDS ORDERED: BUMETANIDE 1MG/4ML VIAL IVP SCH (18:00)
[2021-02-25 06:18] LABS: HEPATITIS A ANTIBODY IGM Negative (Negative); HEPATITIS B CORE IGM Negative (Negative); HEPATITIS Bs ANTIGEN SCREEN P Negative (Negative)
[2021-02-25 13:14] LABS: ALPHA-1-ANTITRYPSIN 209 mg/dL (101-187)
== END 2021-02-23 18:40 | disposition left against medical advice (07) | DRG 291 ==
LOC: EDH 01:06 → EDHIP 01:07
PROVIDERS: ADMIT Internal Medicine; ATTEND Internal Medicine
DX: I13.0 Hypertensive heart and chronic kidney disease with heart failure and stage 1 through stage 4 chronic kidney disease, or unspecified chronic kidney disease (principal); I50.23 Acute on chronic systolic (congestive) heart failure; N17.9 Acute kidney failure, unspecified; D64.9 Anemia, unspecified; I42.8 Other cardiomyopathies; E11.22 Type 2 diabetes mellitus with diabetic chronic kidney disease; E78.5 Hyperlipidemia, unspecified; L29.9 Pruritus, unspecified; N18.9 Chronic kidney disease, unspecified; N50.89 Other specified disorders of the male genital organs; Z82.3 Family history of stroke; Z82.49 Family history of ischemic heart disease and other diseases of the circulatory system; Z83.3 Family history of diabetes mellitus; Z91.19 Patient's noncompliance with other medical treatment and regimen
CPT/HCPCS: 36415; 71045; 74181; 80053; 80074; 80305; 82103; 82390; 82948; 82977; 83516; 83540; 83550; 83605; 83615; 83735; 83880; 84484; 85025; 85610; 85730; 86038; 86215; 86235; 86255; 87040; 93005; 93970; G0378; J1200; J1644; J1815; J1940